=== PATIENT | female | born 1955 | race Caucasian/White ===

== ENCOUNTER 2017-07-28 19:32 | Inpatient (IN) | payer MEDICARE ==
[~2017-07-28] VITALS: Ht 162.6 cm; Wt 101.6 kg
[2017-07-28] MEDS ORDERED: RISP4TAB2 PO (19:49)
[2017-07-28] MEDS ORDERED: LOVA40TA2 PO (19:49)
[2017-07-28] MEDS ORDERED: MELA3TAB2 PO (19:49)
[2017-07-28] MEDS ORDERED: SITA100T PO (19:49)
[2017-07-28] MEDS ORDERED: INSU100I27 SQ (19:49)
[2017-07-28] MEDS ORDERED: HYDR12.53 PO (19:49)
[2017-07-28] MEDS ORDERED: CEFU500T46 PO (19:49)
[2017-07-28] MEDS ORDERED: UBIQ100C3 PO (19:49)
[2017-07-28] MEDS ORDERED: MULT1TAB52 PO (19:49)
[2017-07-28] MEDS ORDERED: LOSA100T6 PO (19:49)
[2017-07-28] MEDS ORDERED: TEMA15CA PO (19:49)
[2017-07-28] MEDS ORDERED: MAGNESIUM HYDROXIDE 2,400 MG/30 ML ORAL.SUSP. PO PRN (20:00)
[2017-07-28] MEDS ORDERED: MAG HYDROX/AL HYDROX/SIMETH 30 ML ORAL.SUSP PO PRN (20:00)
--- NOTE | 2017-07-28 21:02 | PDOC ---
Exam Note: Naseem Note: Please also refer to the separate dictated note~for this date of service dictated separately.~Patient seen individually. Discussed the patient with Nursing staff reviewed the chart.~Reviewed interim history and current functioning. Reviewed vital signs,~Labs/ Radiology~and current medications noted below. Continue current treatment with the changes noted in the dictated addendum note Assessment: Labs: Laboratory Tests Test 07/28/17 19:41 Glucose (Fingerstick) 168 mg/dL (70-99) H Current Medications: Meds: Current Medications Acetaminophen (Tylenol) 650 mg PRN Q6HRS PRN PO PAIN / TEMP; Start 07/28/17 at 20:00 Al Hydroxide/Mg Hydroxide (Mylanta Plus Xs) 15 ml PRN AFTMEALHC PRN PO DYSPEPSIA; Start 07/28/17 at 20:00; Stop 07/28/17 at 20:05; Status DC Magnesium Hydroxide (Milk Of Magnesia) 2,400 mg PRN QHS PRN PO CONSTIPATION; Start 07/28/17 at 20:00; Stop 07/28/17 at 20:05; Status DC Active Scripts Active Reported Hydrochlorothiazide Capsule (Hydrochlorothiazide) 12.5 Mg Capsule 12.5 Mg PO DAILY Ubiquinol 100 Mg Capsule 100 Mg PO DAILYWSUP Temazepam 15 Mg Capsule 15 Mg PO QHS Januvia (Sitagliptin Phosphate) 100 Mg Tablet 100 Mg PO DAILY Risperidone 4 Mg Tablet 4 Mg PO QHS Multivitamins (Multivitamin) 1 Each Tablet 1 Tab PO DAILY Melatonin 3 Mg Tablet 3 Mg PO QHS Lovastatin 40 Mg Tablet 40 Mg PO QHS Losartan Potassium 100 Mg Tablet 100 Mg PO DAILY Levemir Flextouch (Insulin Detemir) 100 Unit/1 Ml Insuln.pen 70 Unit SQ HS Cefuroxime (Cefuroxime Axetil) 500 Mg Tablet 250 Mg PO BID 5 Days I have reviewed the current psychotropics carefully including drug interactions. Risk benefit ratio favors no change other than as noted in my dictated progress note. Diagnosis: Problems: (1) Behavior problem (2) Anxiety disorder (3) Confusion JAY DOE MD Jul 28, 2017 21:02
[2017-07-28 21:10] LABS: BASO % 1 % (0-3); EOS # 0.1 x10^3/uL (0.0-0.7); EOS % 2 % (0-3); HEMATOCRIT 42.6 % (36.0-47.0); HEMOGLOBIN 14.3 g/dL (12.0-15.5); LYMPH # 2.3 x10^3/uL (1.0-4.8); LYMPH % 30 % (24-48); MEAN CORPUSCULAR HEMOGLOBIN 29 pg (25-35); MEAN CORPUSCULAR HGB CONC 34 g/dL (31-37); MEAN CORPUSCULAR VOLUME 86 fL (79-100); MONO # 0.6 x10^3/uL (0.0-1.1); MONO % 8 % (0-9); NEUT # 4.6 x10^3uL (1.8-7.7); NEUT % 60 % (31-73); PLATELET COUNT 189 x10^3/uL (140-400); RED BLOOD COUNT 4.97 x10^6/uL (3.50-5.40); RED CELL DISTRIBUTION WIDTH 14.2 % (11.5-14.5); WHITE BLOOD COUNT 7.7 x10^3/uL (4.0-11.0)
[2017-07-28 21:18] LABS: ALBUMIN 3.7 g/dL (3.4-5.0); ALBUMIN/GLOBULIN RATIO 0.9 (1.0-1.7); CALCIUM 9.5 mg/dL (8.5-10.1); CREATININE 0.7 mg/dL (0.6-1.0); GFR 85.1; TOTAL BILIRUBIN 0.5 mg/dL (0.2-1.0); TOTAL PROTEIN 7.8 g/dL (6.4-8.2)
[2017-07-28] MEDS: MELATONIN 3 MG TABLET PO SCH (21:44)
[2017-07-28] MEDS: risperiDONE 2 MG TABLET. PO SCH (21:45)
[2017-07-28] MEDS: TEMAZEPAM 15 MG CAPSULE PO SCH (21:46)
[2017-07-28] MEDS: INSULIN DETEMIR 300 UNITS/3 ML INSULN.PEN. SQ SCH (21:57)
[2017-07-28] MEDS ORDERED: INSU100I17 SQ (22:04)
[2017-07-28 22:22] VITALS: BP 179/80
[2017-07-29 05:54] VITALS: BP 139/61
[2017-07-29 07:40] LABS: BACTERIA,URINE FEW /HPF (0-FEW); BILIRUBIN,URINE NEG (NEG); CLARITY,URINE CLOUDY; COLOR,URINE YELLOW; GLUCOSE,URINE >=1000 mg/dL (NEG); NITRITE,URINE NEG (NEG); RBC,URINE 0 /HPF (0-2); SQUAMOUS EPITHELIAL CELL,UR MANY /LPF; UROBILINOGEN,URINE 0.2 mg/dL (0.2 mg/dL); WBC,URINE 20-40 /HPF (0-4)
[2017-07-29] MEDS ORDERED: CEFUROXIME AXETIL 250 MG PO SCH (09:00)
[2017-07-29] MEDS ORDERED: NON FORMULARY ITEM (Sitagliptin Phosphate (Januvia) 100 MG) PO SCH (09:00)
[2017-07-29] MEDS: INSULIN ASPART 300 UNITS/3 ML INSULN.PEN SQ SCH ×3 (09:41→17:13)
[2017-07-29] MEDS: hydroCHLOROthiazide 12.5 MG CAPSULE PO SCH (10:35)
[2017-07-29] MEDS: LACTOBACILLUS RHAMNOSUS GG 1 CAPSULE. PO SCH ×2 (10:35→19:24)
[2017-07-29] MEDS: LINAGLIPTIN 5 MG TABLET PO SCH (10:35)
[2017-07-29] MEDS: LOSARTAN 50 MG TABLET. PO SCH (10:35)
[2017-07-29] MEDS: CEFPODOXIME PROXETIL 100 MG TABLET PO SCH ×2 (10:35→19:25)
[2017-07-29] MEDS: MULTIVITAMIN with MINERAL TABLET. PO SCH (10:35)
[2017-07-29] MEDS ORDERED: INSULIN ASPART 300 UNITS/3 ML INSULN.PEN SQ SCH (11:30)
[2017-07-29 13:39] LABS: THYROID STIM HORMONE (TSH) 1.295 uIU/mL (0.358-3.740)
[2017-07-29 16:13] VITALS: BP 157/70
--- NOTE | 2017-07-29 16:15 | PDOC1 ---
History of Present Illness Reason for Visit: Bipolar w/ psychosis History of Present Illness Pt sent to [facility] for admission to the [facility] unit. She has a hx of bipolar disorder as well as insulin-dependent DM. She is a reasonable historian. Pt seen on rounds w/ nursing staff. She has no complaints today. States she was able to eat lunch and it tasted fine. Chief Complaint: Psychosis Allergies: Coded Allergies: Iodinated Contrast- Oral and IV Dye (Verified Allergy, Unknown, 07/28/17) guaifenesin (Verified Allergy, Unknown, 07/28/17) latex (Verified Allergy, Unknown, 07/28/17) naproxen (Verified Allergy, Unknown, 07/28/17) sulfamethoxazole (Verified Allergy, Unknown, 07/28/17) valproic acid (Verified Allergy, Unknown, 07/28/17) Uncoded Allergies: magnesium acid (Allergy, Unknown, 07/28/17) stearic acid (Allergy, Unknown, 07/28/17) Past Medical History Cardiac: HTN, hyperipidemia Endocrine: Diabetes Past Surgical History: No pertinent history Family History: No pertinent hx Past Social History Smoke: No Alcohol: none Drugs: None Lives: Alone Review of Systems Review Of Systems Fourteen system , review of systems has been reviewed. See HPI for pertinent positives and negative responses, other maxwell all other systems are negative, non pertinent or non contributory Constitutional: No: Fever, Chills, Sweats Eyes: No: Blurry vision, Double vision, Loss of vision ENT: No: Ear pain, Mouth pain Respiratory: YES: Cough (dry, improving), No: Shortness of breath Cardiovascular: No: Chest Pain Gastrointestinal: No: Nausea, Vomiting, Abdominal Pain, Diarrhea, Constipation , Melena, Hematochezia Genitourinary: No: Dysuria, Henaturia Musculoskeletal: No: Joint Swelling, Muscular Weakness SKIN: YES: Warm, Dry, No Rashes Neurological: No: Dizziness, Gait Disturbance, Headaches, Memory Loss, Numbness /Tingling, Seizures Allergies: Coded Allergies: Iodinated Contrast- Oral and IV Dye (Verified Allergy, Unknown, 07/28/17) guaifenesin (Verified Allergy, Unknown, 07/28/17) latex (Verified Allergy, Unknown, 07/28/17) naproxen (Verified Allergy, Unknown, 07/28/17) sulfamethoxazole (Verified Allergy, Unknown, 07/28/17) valproic acid (Verified Allergy, Unknown, 07/28/17) Uncoded Allergies: magnesium acid (Allergy, Unknown, 07/28/17) stearic acid (Allergy, Unknown, 07/28/17) Medications Current Medications Acetaminophen (Tylenol) 650 mg PRN Q6HRS PRN PO PAIN / TEMP; Start 07/28/17 at 20:00 Al Hydroxide/Mg Hydroxide (Mylanta Plus Xs) 15 ml PRN AFTMEALHC PRN PO DYSPEPSIA; Start 07/28/17 at 20:00; Stop 07/28/17 at 20:05; Status DC Magnesium Hydroxide (Milk Of Magnesia) 2,400 mg PRN QHS PRN PO CONSTIPATION; Start 07/28/17 at 20:00; Stop 07/28/17 at 20:05; Status DC Temazepam (Restoril) 15 mg QHS PO Last administered on 07/28/17at 21:46; Start 07/28/17 at 21:45 Melatonin 3 mg QHS PO Last administered on 07/28/17at 21:44; Start 07/28/17 at 21:00 Risperidone (RisperDAL) 4 mg QHS PO Last administered on 07/28/17at 21:45; Start 07/28/17 at 21:45 Insulin Detemir (Levemir) 70 units HS SQ Last administered on 07/28/17at 21:57; Start 07/28/17 at 21:00 Hydrochlorothiazide (Microzide) 12.5 mg DAILY PO Last administered on at 10:35; Start 07/29/17 at 09:00 Insulin Aspart (NovoLOG) TIDBFRMEAL SQ ; Start 07/29/17 at 11:30; Stop at 11:30; Status DC Non-Formulary Medication (Cefuroxime Axetil (Cefuroxime)) 250 mg BID PO ; Start 07/29/17 at 09:00; Stop 07/29/17 at 09:00; Status DC Losartan Potassium (Cozaar) 100 mg DAILY PO Last administered on 07/29/17at 10: 35; Start 07/29/17 at 09:00 Non-Formulary Medication (Lovastatin ) 40 mg QHS PO ; Start 07/29/17 at 21:00; Stop 07/29/17 at 21:00; Status DC Multivitamins/ Calcium (Thera-M Plus) 1 tab DAILY PO Last administered on at 10:35; Start 07/29/17 at 09:00 Non-Formulary Medication (Sitagliptin Phosphate (Januvia)) 100 mg DAILY PO ; Start 07/29/17 at 09:00; Stop 07/29/17 at 09:00; Status DC Coenzyme Q10 (Coenzyme Q10) 100 mg DAILYWSUP PO ; Start 07/30/17 at 17:00 Atorvastatin Calcium (Lipitor) 10 mg QHS PO ; Start 07/29/17 at 21:00 Linagliptin (Tradjenta) 5 mg DAILY PO Last administered on 07/29/17at 10:35; Start 07/29/17 at 09:00 Cefpodoxime Proxetil (Vantin) 100 mg BID PO Last administered on 07/29/17at 10: 35; Start 07/29/17 at 09:00; Stop 08/02/17 at 21:01 Lactobacillus Rhamnosus (Culturelle) 1 cap BID PO Last administered on at 10:35; Start 07/29/17 at 09:00 Insulin Aspart (NovoLOG) 20 units TIDBFRMEAL SQ Last administered on 07/29/17at 12:05; Start 07/29/17 at 09:30 Active Scripts Active Reported Novolog Flexpen (Insulin Aspart) 100 Unit/1 Ml Insuln.pen 0 SQ TIDBFRMEAL Hydrochlorothiazide Capsule (Hydrochlorothiazide) 12.5 Mg Capsule 12.5 Mg PO DAILY Ubiquinol 100 Mg Capsule 100 Mg PO DAILYWSUP Temazepam 15 Mg Capsule 15 Mg PO QHS Januvia (Sitagliptin Phosphate) 100 Mg Tablet 100 Mg PO DAILY Risperidone 4 Mg Tablet 4 Mg PO QHS Multivitamins (Multivitamin) 1 Each Tablet 1 Tab PO DAILY Melatonin 3 Mg Tablet 3 Mg PO QHS Lovastatin 40 Mg Tablet 40 Mg PO QHS Losartan Potassium 100 Mg Tablet 100 Mg PO DAILY Levemir Flextouch (Insulin Detemir) 100 Unit/1 Ml Insuln.pen 70 Unit SQ HS Cefuroxime (Cefuroxime Axetil) 500 Mg Tablet 250 Mg PO BID 5 Days Exam Vital Signs Vital Signs Date Time Temp Pulse Resp B/P (MAP) Pulse Ox O2 Delivery O2 Flow Rate FiO2 07/29/17 10:35 74 139/61 07/29/17 05:54 97.5 16 96 07/28/17 22:22 Room Air Assessment/Plan Assessment/Plan 1. Bipolar d/o w/ psychosis: Per Dr. Harper. 2. DM2: Confirmed w/ pt's segmental paving supervisor, takes 30 units Levemir qAM, 70 units at HS. 20 units qac. Will monitor sugars AC/HS and try to avoid hypoglycemia. 3. HTN: BP's controlled w/ home meds. 4. Cont Vantin for total 10 days as ordered by d/c facility. 5. DVT proph: No anticoagulation indicated, pt is fully ambulatory and low risk. COURSE Allergies Coded Allergies Type Severity Reaction Last Updated Verified Iodinated Contrast- Oral and IV Dye Allergy Unknown 07/28/17 Yes guaifenesin Allergy Unknown 07/28/17 Yes latex Allergy Unknown 07/28/17 Yes naproxen Allergy Unknown 07/28/17 Yes sulfamethoxazole Allergy Unknown 07/28/17 Yes valproic acid Allergy Unknown 07/28/17 Yes Uncoded Allergies Type Severity Reaction Last Updated Verified magnesium acid Allergy Unknown 07/28/17 stearic acid Allergy Unknown 07/28/17 Laboratory Tests Test 07/28/17 19:41 07/28/17 20:55 07/29/17 07:20 07/29/17 07:38 Glucose (Fingerstick) 168 mg/dL (70-99) 263 mg/dL (70-99) White Blood Count 7.7 x10^3/uL (4.0-11.0) Red Blood Count 4.97 x10^6/uL (3.50-5.40) Hemoglobin 14.3 g/dL (12.0-15.5) Hematocrit 42.6 % (36.0-47.0) Mean Corpuscular Volume 86 fL (79-100) Mean Corpuscular Hemoglobin 29 pg (25-35) Mean Corpuscular Hemoglobin Concent 34 g/dL (31-37) Red Cell Distribution Width 14.2 % (11.5-14.5) Platelet Count 189 x10^3/uL (140-400) Neutrophils (%) (Auto) 60 % (31-73) Lymphocytes (%) (Auto) 30 % (24-48) Monocytes (%) (Auto) 8 % (0-9) Eosinophils (%) (Auto) 2 % (0-3) Basophils (%) (Auto) 1 % (0-3) Neutrophils # (Auto) 4.6 x10^3uL (1.8-7.7) Lymphocytes # (Auto) 2.3 x10^3/uL (1.0-4.8) Monocytes # (Auto) 0.6 x10^3/uL (0.0-1.1) Eosinophils # (Auto) 0.1 x10^3/uL (0.0-0.7) Basophils # (Auto) 0.0 x10^3/uL (0.0-0.2) Sodium Level 140 mmol/L (136-145) Potassium Level 4.0 mmol/L (3.5-5.1) Chloride Level 103 mmol/L (98-107) Carbon Dioxide Level 27 mmol/L (21-32) Anion Gap 10 (6-14) Blood Urea Nitrogen 14 mg/dL (7-20) Creatinine 0.7 mg/dL (0.6-1.0) Estimated GFR (Cockcroft-Gault) 85.1 BUN/Creatinine Ratio 20 (6-20) Glucose Level 161 mg/dL (70-99) Calcium Level 9.5 mg/dL (8.5-10.1) Magnesium Level 2.0 mg/dL (1.8-2.4) Iron Level 44 ug/dL (50-170) Total Iron Binding Capacity 351 ug/dL (250-450) Iron Saturation 13 % (15-34) Total Bilirubin 0.5 mg/dL (0.2-1.0) Aspartate Amino Transf (AST/SGOT) 20 U/L (15-37) Alanine Aminotransferase (ALT/SGPT) 43 U/L (14-59) Alkaline Phosphatase 84 U/L (46-116) Total Protein 7.8 g/dL (6.4-8.2) Albumin 3.7 g/dL (3.4-5.0) Albumin/Globulin Ratio 0.9 (1.0-1.7) Triglycerides Level 89 mg/dL (0-150) Cholesterol Level 143 mg/dL (0-200) LDL Cholesterol, Calculated 76 mg/dL (0-100) VLDL Cholesterol, Calculated 17 mg/dL (0-40) Non-HDL Cholesterol Calculated 93 mg/dL (0-129) HDL Cholesterol 50 mg/dL (40-60) Cholesterol/HDL Ratio 2.0 Vitamin B12 Level 1571 pg/mL (247-911) 25-Hydroxy Vitamin D Total 32.9 ng/mL (30-100) Thyroid Stimulating Hormone (TSH) 1.295 uIU/mL (0.358-3.740) Urine Collection Type Unknown Urine Color Yellow Urine Clarity Cloudy Urine pH 5.0 Urine Specific [place] >=1.030 Urine Protein Trace (NEG-TRACE) Urine Glucose (UA) >=1000 mg/dL (NEG) Urine Ketones (Stick) Neg mg/dL (NEG) Urine Blood Trace (NEG) Urine Nitrite Neg (NEG) Urine Bilirubin Neg (NEG) Urine Urobilinogen Dipstick 0.2 mg/dL (0.2 mg/dL) Urine Leukocyte Esterase Trace (NEG) Urine RBC 0 /HPF (0-2) Urine WBC 20-40 /HPF (0-4) Urine Squamous Epithelial Cells Many /LPF Urine Bacteria Few /HPF (0-FEW) Urine Mucus Slight /LPF Test 07/29/17 11:26 Glucose (Fingerstick) 274 mg/dL (70-99) Current Medications Medications (Trade) Dose Ordered Sig/Cynthia Route PRN Reason Start Time Stop Time Status Last Admin Dose Admin Acetaminophen (Tylenol) 650 mg PRN Q6HRS PRN PO PAIN / TEMP 07/28/17 20:00 Al Hydroxide/Mg Hydroxide (Mylanta Plus Xs) 15 ml PRN AFTMEALHC PRN PO DYSPEPSIA 07/28/17 20:00 07/28/17 20:05 DC Magnesium Hydroxide (Milk Of Magnesia) 2,400 mg PRN QHS PRN PO CONSTIPATION 07/28/17 20:00 07/28/17 20:05 DC Temazepam (Restoril) 15 mg QHS PO 07/28/17 21:45 07/28/17 21:46 Melatonin 3 mg QHS PO 07/28/17 21:00 07/28/17 21:44 Risperidone (RisperDAL) 4 mg QHS PO 07/28/17 21:45 07/28/17 21:45 Insulin Detemir (Levemir) 70 units HS SQ 07/28/17 21:00 07/28/17 21:57 Hydrochlorothiazide (Microzide) 12.5 mg DAILY PO 07/29/17 09:00 07/29/17 10:35 Insulin Aspart (NovoLOG) TIDBFRMEAL SQ 07/29/17 11:30 07/29/17 11:30 DC Non-Formulary Medication (Cefuroxime Axetil (Cefuroxime)) 250 mg BID PO 07/29/17 09:00 07/29/17 09:00 DC Losartan Potassium (Cozaar) 100 mg DAILY PO 07/29/17 09:00 07/29/17 10:35 Non-Formulary Medication (Lovastatin ) 40 mg QHS PO 07/29/17 21:00 07/29/17 21:00 DC Multivitamins/ Calcium (Thera-M Plus) 1 tab DAILY PO 07/29/17 09:00 07/29/17 10:35 Non-Formulary Medication (Sitagliptin Phosphate (Januvia)) 100 mg DAILY PO 07/29/17 09:00 07/29/17 09:00 DC Coenzyme Q10 (Coenzyme Q10) 100 mg DAILYWSUP PO 07/30/17 17:00 Atorvastatin Calcium (Lipitor) 10 mg QHS PO 07/29/17 21:00 Linagliptin (Tradjenta) 5 mg DAILY PO 07/29/17 09:00 07/29/17 10:35 Cefpodoxime Proxetil (Vantin) 100 mg BID PO 07/29/17 09:00 08/02/17 21:01 07/29/17 10:35 Lactobacillus Rhamnosus (Culturelle) 1 cap BID PO 07/29/17 09:00 07/29/17 10:35 Insulin Aspart (NovoLOG) 20 units TIDBFRMEAL SQ 07/29/17 09:30 07/29/17 12:05 I & O 07/29/17 00:00 Intake Total 240 ml Balance 240 ml Vital Signs Date Time Temp Pulse Resp B/P (MAP) Pulse Ox O2 Delivery O2 Flow Rate FiO2 07/29/17 10:35 74 139/61 07/29/17 05:54 97.5 16 96 07/28/17 22:22 Room Air KAROLINE GALLO MD Jul 29, 2017 16:15
[2017-07-29 18:08] LABS: T3 TOTAL 92 ng/dL (71-180); THYROXINE 8.1 ug/dL (4.5-12.0)
--- NOTE | 2017-07-29 18:41 | HP ---
ADMIT DATE: 07/28/2017 IDENTIFYING DATA: The patient is a 62-year-old female referred to us from [facility] where she presented from home on account of exacerbation of her bipolar disorder with psychotic features. Apparently, the patient left her apartment ended up [employer] will in her car ran out of gas and was taken to [facility]. She was psychotic, admitted, medically stabilized. A psychiatric was completed with Dr. Huggins who recommended finally that she needed inpatient psychiatric stabilization even though at the initial referral, he felt she could return home to outpatient treatment at the [facility]. CHIEF COMPLAINT: "I was at home, had called the ambulance that took me to [facility]." In fact, as noted above, the patient was driving in [employer] will and was not at home when she was taken there." HISTORY OF PRESENT ILLNESS: The patient has a long history of bipolar disorder with periods of elation, racing thoughts, grandiosity, hypersexuality, sleep, and appetite changes. She has been treated at the [facility] for years Originally by Dr. Man and currently sees [facility] nurse practitioner and has seen [facility] nurse practitioner in the past. The patient states she was started on lithium at [facility], but that in fact this is not correct. Most recently, she has been on Risperdal, currently 4 mg a day. In the past, she had been on Depakote, but at the current time, Depakote is listed as an allergy for her. She denies active suicidal or homicidal ideation, but while on the unit, remains extremely anxious, restless, constantly moving, disorganized frequently. PAST PSYCHIATRIC HISTORY: As noted above. PAST MEDICAL HISTORY: Positive for recurrent UTIs. At [facility], UA was positive. Urine reflex to culture. History of back pain, hypertension, diabetes mellitus, obesity, hyperlipidemia. Accu-Cheks a.c. and at bedtime. CODE STATUS: Full code. ALLERGIES: IV DYES, LATEX, MAGNESIUM, MUCINEX, NAPROSYN, STEARIC ACID, SULFA, VALPROIC ACID. CURRENT PSYCHOTROPICS: Risperdal 4 mg at bedtime, melatonin 4 mg at bedtime, Restoril 15 mg at bedtime. FAMILY HISTORY: Noncontributory. SOCIAL HISTORY: [place] [facility] [place] [facility] [place] [facility] [place], [place]. 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 No alcohol or drug abuse history. It is notable in the past when she becomes hypomanic and grandiose, she becomes hyper-baptism and then hypersexual and believes she is having an affair by the process machine operator. In fact, they were unable to be kept in the same room at those times because of her above. REVIEW OF SYSTEMS: No CV, , pulmonary, eye, ENT system symptoms on review. Reliability somewhat poor. Reaction to hospitalization, the patient accepting of this assets, supportive psychotherapy and medication management at the [facility]. MENTAL STATUS EXAM: The patient was seen individually evening of 07/29/2017. She is oriented to herself and situation. Staff indicated that she is up and down and walking away from the dining room frequently restless. Otherwise, oriented. Speech is coherent, abstraction fair, computation somewhat impaired. She is distracted. No active suicidal or homicidal ideation. Attention span short. Language function intact. LABORATORY DATA: Reviewed. IMPRESSION: Bipolar 1 disorder, mixed with psychotic features; anxiety disorder, unspecified; rule out schizoaffective disorder, bipolar type, with psychotic features. Rest as above. PLAN: Admit to geropsychiatry unit at [facility]. I will see the patient daily individually from a psychiatric standpoint, medical followup per Dr. Horta/Dr. Walsh. Continue the patient on her current psychotropic, start her on Trileptal 300 mg b.i.d., we will increase gradually. [place] is best avoided due to her significant noncompliance at home and lower ability to follow through with lab work and the risk of lithium and her situation. Social service staff will address appropriate placement. One option may be living with her son in [facility]. JAY DOE MD DR: KRISTY/german JOB#: [id number] / [id number]
[2017-07-29] MEDS: MELATONIN 3 MG TABLET PO SCH (19:24)
[2017-07-29] MEDS: risperiDONE 2 MG TABLET. PO SCH (19:24)
[2017-07-29] MEDS: TEMAZEPAM 15 MG CAPSULE PO SCH (19:24)
[2017-07-29] MEDS: INSULIN DETEMIR 300 UNITS/3 ML INSULN.PEN. SQ SCH (19:26)
[2017-07-29] MEDS: ATORVASTATIN CALCIUM 10 MG TABLET. PO SCH (19:35)
[2017-07-29] MEDS ORDERED: LOVASTATIN 40 MG PO SCH (21:00)
--- NOTE | 2017-07-29 21:03 | PDOC ---
Exam Note: Naseem Note: Please also refer to the separate dictated note~for this date of service dictated separately.~Patient seen individually. Discussed the patient with Nursing staff reviewed the chart.~Reviewed interim history and current functioning. Reviewed vital signs,~Labs/ Radiology~and current medications noted below. Continue current treatment with the changes noted in the dictated addendum note Assessment: Vital Signs: Vital Signs Date Time Temp Pulse Resp B/P (MAP) Pulse Ox O2 Delivery O2 Flow Rate FiO2 07/29/17 16:13 98.4 66 18 157/70 (99) 98 07/28/17 22:22 Room Air I&O Intake and Output 07/29/17 07:00 Intake Total 240 ml Balance 240 ml Intake Oral 240 ml Labs: Laboratory Tests Test 07/29/17 07:20 07/29/17 07:38 07/29/17 11:26 07/29/17 16:27 Urine Collection Type Unknown Urine Color Yellow Urine Clarity Cloudy Urine pH 5.0 Urine Specific [place] >=1.030 Urine Protein Trace (NEG-TRACE) Urine Glucose (UA) >=1000 mg/dL (NEG) Urine Ketones (Stick) Neg mg/dL (NEG) Urine Blood Trace (NEG) Urine Nitrite Neg (NEG) Urine Bilirubin Neg (NEG) Urine Urobilinogen Dipstick 0.2 mg/dL (0.2 mg/dL) Urine Leukocyte Esterase Trace (NEG) Urine RBC 0 /HPF (0-2) Urine WBC 20-40 /HPF (0-4) Urine Squamous Epithelial Cells Many /LPF Urine Bacteria Few /HPF (0-FEW) Urine Mucus Slight /LPF Glucose (Fingerstick) 263 mg/dL (70-99) H 274 mg/dL (70-99) H 157 mg/dL (70-99) H Test 07/29/17 19:12 Glucose (Fingerstick) 275 mg/dL (70-99) H Current Medications: Meds: Current Medications Acetaminophen (Tylenol) 650 mg PRN Q6HRS PRN PO PAIN / TEMP; Start 07/28/17 at 20:00 Al Hydroxide/Mg Hydroxide (Mylanta Plus Xs) 15 ml PRN AFTMEALHC PRN PO DYSPEPSIA; Start 07/28/17 at 20:00; Stop 07/28/17 at 20:05; Status DC Magnesium Hydroxide (Milk Of Magnesia) 2,400 mg PRN QHS PRN PO CONSTIPATION; Start 07/28/17 at 20:00; Stop 07/28/17 at 20:05; Status DC Temazepam (Restoril) 15 mg QHS PO Last administered on 07/29/17 19:24; Start 07/28/17 at 21:45 Melatonin 3 mg QHS PO Last administered on 07/29/17 19:24; Start 07/28/17 at 21:00 Risperidone (RisperDAL) 4 mg QHS PO Last administered on 07/29/17 19:24; Start 07/28/17 at 21:45 Insulin Detemir (Levemir) 70 units HS SQ Last administered on 07/29/17 19:26; Start 07/28/17 at 21:00 Hydrochlorothiazide (Microzide) 12.5 mg DAILY PO Last administered on 10:35; Start 07/29/17 at 09:00 Insulin Aspart (NovoLOG) TIDBFRMEAL SQ ; Start 07/29/17 at 11:30; Stop at 11:30; Status DC Non-Formulary Medication (Cefuroxime Axetil (Cefuroxime)) 250 mg BID PO ; Start 07/29/17 at 09:00; Stop 07/29/17 at 09:00; Status DC Losartan Potassium (Cozaar) 100 mg DAILY PO Last administered on 07/29/17 10: 35; Start 07/29/17 at 09:00 Non-Formulary Medication (Lovastatin ) 40 mg QHS PO ; Start 07/29/17 at 21:00; Stop 07/29/17 at 21:00; Status DC Multivitamins/ Calcium (Thera-M Plus) 1 tab DAILY PO Last administered on at 10:35; Start 07/29/17 at 09:00 Non-Formulary Medication (Sitagliptin Phosphate (Januvia)) 100 mg DAILY PO ; Start 07/29/17 at 09:00; Stop 07/29/17 at 09:00; Status DC Coenzyme Q10 (Coenzyme Q10) 100 mg DAILYWSUP PO ; Start 07/30/17 at 17:00 Atorvastatin Calcium (Lipitor) 10 mg QHS PO Last administered on 07/29/17at 19: 35; Start 07/29/17 at 21:00 Linagliptin (Tradjenta) 5 mg DAILY PO Last administered on 07/29/17at 10:35; Start 07/29/17 at 09:00 Cefpodoxime Proxetil (Vantin) 100 mg BID PO Last administered on 07/29/17at 19: 25; Start 07/29/17 at 09:00; Stop 08/02/17 at 21:01 Lactobacillus Rhamnosus (Culturelle) 1 cap BID PO Last administered on at 19:24; Start 07/29/17 at 09:00 Insulin Aspart (NovoLOG) 20 units TIDBFRMEAL SQ Last administered on 07/29/17at 17:13; Start 07/29/17 at 09:30 Insulin Detemir (Levemir) 30 units DAILY08 SQ ; Start 07/30/17 at 08:00 Oxcarbazepine (Trileptal) 300 mg BID PO Last administered on 07/29/17 19:35; Start 07/29/17 at 21:00 Active Scripts Active Reported Novolog Flexpen (Insulin Aspart) 100 Unit/1 Ml Insuln.pen 0 SQ TIDBFRMEAL Hydrochlorothiazide Capsule (Hydrochlorothiazide) 12.5 Mg Capsule 12.5 Mg PO DAILY Ubiquinol 100 Mg Capsule 100 Mg PO DAILYWSUP Temazepam 15 Mg Capsule 15 Mg PO QHS Januvia (Sitagliptin Phosphate) 100 Mg Tablet 100 Mg PO DAILY Risperidone 4 Mg Tablet 4 Mg PO QHS Multivitamins (Multivitamin) 1 Each Tablet 1 Tab PO DAILY Melatonin 3 Mg Tablet 3 Mg PO QHS Lovastatin 40 Mg Tablet 40 Mg PO QHS Losartan Potassium 100 Mg Tablet 100 Mg PO DAILY Levemir Flextouch (Insulin Detemir) 100 Unit/1 Ml Insuln.pen 70 Unit SQ HS Cefuroxime (Cefuroxime Axetil) 500 Mg Tablet 250 Mg PO BID 5 Days I have reviewed the current psychotropics carefully including drug interactions. Risk benefit ratio favors no change other than as noted in my dictated progress note. Diagnosis: Problems: (1) Behavior problem (2) Anxiety disorder (3) Confusion (4) Bipolar 1 disorder, manic, moderate (5) Schizoaffective disorder JAY DOE MD Jul 29, 2017 21:03
[2017-07-30 05:51] VITALS: BP 149/71
[2017-07-30] MEDS: MULTIVITAMIN with MINERAL TABLET. PO SCH (08:10)
[2017-07-30] MEDS: LOSARTAN 50 MG TABLET. PO SCH (08:10)
[2017-07-30] MEDS: CEFPODOXIME PROXETIL 100 MG TABLET PO SCH ×2 (08:11→19:41)
[2017-07-30] MEDS: hydroCHLOROthiazide 12.5 MG CAPSULE PO SCH (08:11)
[2017-07-30] MEDS: LACTOBACILLUS RHAMNOSUS GG 1 CAPSULE. PO SCH ×2 (08:11→19:40)
[2017-07-30] MEDS: INSULIN DETEMIR 300 UNITS/3 ML INSULN.PEN. SQ SCH ×2 (08:11→19:50)
[2017-07-30] MEDS: LINAGLIPTIN 5 MG TABLET PO SCH (08:11)
[2017-07-30] MEDS: INSULIN ASPART 300 UNITS/3 ML INSULN.PEN SQ SCH ×3 (08:12→18:04)
[2017-07-30 16:05] VITALS: BP 150/61
[2017-07-30] MEDS: UBIDECARENONE 50 MG CAPSULE. PO SCH (18:05)
[2017-07-30] MEDS: TEMAZEPAM 15 MG CAPSULE PO SCH (19:40)
[2017-07-30] MEDS: risperiDONE 2 MG TABLET. PO SCH (19:40)
[2017-07-30] MEDS: MELATONIN 3 MG TABLET PO SCH (19:40)
[2017-07-30] MEDS: ATORVASTATIN CALCIUM 10 MG TABLET. PO SCH (19:40)
--- NOTE | 2017-07-30 22:04 | PDOC ---
Exam Note: Naseem Note: Please also refer to the separate dictated note~for this date of service dictated separately.~Patient seen individually. Discussed the patient with Nursing staff reviewed the chart.~Reviewed interim history and current functioning. Reviewed vital signs,~Labs/ Radiology~and current medications noted below. Continue current treatment with the changes noted in the dictated addendum note Assessment: Vital Signs: Vital Signs Date Time Temp Pulse Resp B/P (MAP) Pulse Ox O2 Delivery O2 Flow Rate FiO2 07/30/17 16:05 98.1 67 18 150/61 (90) 97 07/28/17 22:22 Room Air I&O Intake and Output 07/30/17 07:00 Intake Total 1800 ml Balance 1800 ml Intake Oral 1800 ml # Bowel Movements 1 Labs: Laboratory Tests Test 07/30/17 07:27 07/30/17 12:15 07/30/17 16:52 07/30/17 18:57 Glucose (Fingerstick) 87 mg/dL (70-99) 119 mg/dL (70-99) H 121 mg/dL (70-99) H 203 mg/dL (70-99) H Current Medications: Meds: Current Medications Acetaminophen (Tylenol) 650 mg PRN Q6HRS PRN PO PAIN / TEMP; Start 07/28/17 at 20:00 Al Hydroxide/Mg Hydroxide (Mylanta Plus Xs) 15 ml PRN AFTMEALHC PRN PO DYSPEPSIA; Start 07/28/17 at 20:00; Stop 07/28/17 at 20:05; Status DC Magnesium Hydroxide (Milk Of Magnesia) 2,400 mg PRN QHS PRN PO CONSTIPATION; Start 07/28/17 at 20:00; Stop 07/28/17 at 20:05; Status DC Temazepam (Restoril) 15 mg QHS PO Last administered on 07/30/17at 19:40; Start 07/28/17 at 21:45 Melatonin 3 mg QHS PO Last administered on 07/30/17 19:40; Start 07/28/17 at 21:00 Risperidone (RisperDAL) 4 mg QHS PO Last administered on 07/30/17 19:40; Start 07/28/17 at 21:45 Insulin Detemir (Levemir) 70 units HS SQ Last administered on 07/30/17at 19:50; Start 07/28/17 at 21:00 Hydrochlorothiazide (Microzide) 12.5 mg DAILY PO Last administered on at 08:11; Start 07/29/17 at 09:00 Insulin Aspart (NovoLOG) TIDBFRMEAL SQ ; Start 07/29/17 at 11:30; Stop at 11:30; Status DC Non-Formulary Medication (Cefuroxime Axetil (Cefuroxime)) 250 mg BID PO ; Start 07/29/17 at 09:00; Stop 07/29/17 at 09:00; Status DC Losartan Potassium (Cozaar) 100 mg DAILY PO Last administered on 07/30/17 08: 10; Start 07/29/17 at 09:00 Non-Formulary Medication (Lovastatin ) 40 mg QHS PO ; Start 07/29/17 at 21:00; Stop 07/29/17 at 21:00; Status DC Multivitamins/ Calcium (Thera-M Plus) 1 tab DAILY PO Last administered on at 08:10; Start 07/29/17 at 09:00 Non-Formulary Medication (Sitagliptin Phosphate (Januvia)) 100 mg DAILY PO ; Start 07/29/17 at 09:00; Stop 07/29/17 at 09:00; Status DC Coenzyme Q10 (Coenzyme Q10) 100 mg DAILYWSUP PO Last administered on 07/30/17 18:05; Start 07/30/17 at 17:00 Atorvastatin Calcium (Lipitor) 10 mg QHS PO Last administered on 07/30/17 19: 40; Start 07/29/17 at 21:00 Linagliptin (Tradjenta) 5 mg DAILY PO Last administered on 07/30/17 08:11; Start 07/29/17 at 09:00 Cefpodoxime Proxetil (Vantin) 100 mg BID PO Last administered on 07/30/17 19: 41; Start 07/29/17 at 09:00; Stop 08/02/17 at 21:01 Lactobacillus Rhamnosus (Culturelle) 1 cap BID PO Last administered on 19:40; Start 07/29/17 at 09:00 Insulin Aspart (NovoLOG) 20 units TIDBFRMEAL SQ Last administered on 3/24/18at 18:04; Start 07/29/17 at 09:30 Insulin Detemir (Levemir) 30 units DAILY08 SQ Last administered on 07/30/17at 08 :11; Start 07/30/17 at 08:00 Oxcarbazepine (Trileptal) 300 mg BID PO Last administered on 07/30/17at 19:40; Start 07/29/17 at 21:00 Active Scripts Active Reported Novolog Flexpen (Insulin Aspart) 100 Unit/1 Ml Insuln.pen 0 SQ TIDBFRMEAL Hydrochlorothiazide Capsule (Hydrochlorothiazide) 12.5 Mg Capsule 12.5 Mg PO DAILY Ubiquinol 100 Mg Capsule 100 Mg PO DAILYWSUP Temazepam 15 Mg Capsule 15 Mg PO QHS Januvia (Sitagliptin Phosphate) 100 Mg Tablet 100 Mg PO DAILY Risperidone 4 Mg Tablet 4 Mg PO QHS Multivitamins (Multivitamin) 1 Each Tablet 1 Tab PO DAILY Melatonin 3 Mg Tablet 3 Mg PO QHS Lovastatin 40 Mg Tablet 40 Mg PO QHS Losartan Potassium 100 Mg Tablet 100 Mg PO DAILY Levemir Flextouch (Insulin Detemir) 100 Unit/1 Ml Insuln.pen 70 Unit SQ HS Cefuroxime (Cefuroxime Axetil) 500 Mg Tablet 250 Mg PO BID 5 Days I have reviewed the current psychotropics carefully including drug interactions. Risk benefit ratio favors no change other than as noted in my dictated progress note. Diagnosis: Problems: (1) Behavior problem (2) Anxiety disorder (3) Confusion (4) Bipolar 1 disorder, manic, moderate (5) Schizoaffective disorder JAY DOE MD Jul 30, 2017 22:04
[2017-07-31] MEDS: ACETAMINOPHEN 325 MG TABLET PO PRN ×2 (02:20→19:45)
[2017-07-31 05:53] VITALS: BP 123/71
[2017-07-31] MEDS: LINAGLIPTIN 5 MG TABLET PO SCH (07:49)
[2017-07-31] MEDS: MULTIVITAMIN with MINERAL TABLET. PO SCH (07:49)
[2017-07-31] MEDS: LACTOBACILLUS RHAMNOSUS GG 1 CAPSULE. PO SCH ×2 (07:49→19:41)
[2017-07-31] MEDS: hydroCHLOROthiazide 12.5 MG CAPSULE PO SCH (07:49)
[2017-07-31] MEDS: LOSARTAN 50 MG TABLET. PO SCH (07:49)
[2017-07-31] MEDS: CEFPODOXIME PROXETIL 100 MG TABLET PO SCH ×2 (07:49→19:41)
[2017-07-31] MEDS: INSULIN DETEMIR 300 UNITS/3 ML INSULN.PEN. SQ SCH ×2 (07:50→20:43)
[2017-07-31] MEDS: INSULIN ASPART 300 UNITS/3 ML INSULN.PEN SQ SCH ×3 (07:51→17:08)
[2017-07-31 16:10] VITALS: BP 147/72
[2017-07-31] MEDS: UBIDECARENONE 50 MG CAPSULE. PO SCH (17:08)
[2017-07-31] MEDS: MELATONIN 3 MG TABLET PO SCH (19:41)
[2017-07-31] MEDS: ATORVASTATIN CALCIUM 10 MG TABLET. PO SCH (19:41)
[2017-07-31] MEDS: risperiDONE 2 MG TABLET. PO SCH (19:41)
[2017-07-31] MEDS: TEMAZEPAM 15 MG CAPSULE PO SCH (19:45)
--- NOTE | 2017-07-31 21:03 | PDOC ---
Exam Note: Naseem Note: Please also refer to the separate dictated note~for this date of service dictated separately.~Patient seen individually. Discussed the patient with Nursing staff reviewed the chart.~Reviewed interim history and current functioning. Reviewed vital signs,~Labs/ Radiology~and current medications noted below. Continue current treatment with the changes noted in the dictated addendum note Assessment: Vital Signs: Vital Signs Date Time Temp Pulse Resp B/P (MAP) Pulse Ox O2 Delivery O2 Flow Rate FiO2 07/31/17 16:10 97.6 63 20 147/72 (97) 97 07/28/17 22:22 Room Air I&O Intake and Output 07/31/17 07:00 Intake Total 1205 ml Balance 1205 ml Intake Oral 1205 ml # Voids 1 Labs: Laboratory Tests Test 07/31/17 07:14 07/31/17 11:36 07/31/17 16:55 07/31/17 19:06 Glucose (Fingerstick) 78 mg/dL (70-99) 150 mg/dL (70-99) H 244 mg/dL (70-99) H 314 mg/dL (70-99) H Current Medications: Meds: Current Medications Acetaminophen (Tylenol) 650 mg PRN Q6HRS PRN PO PAIN / TEMP Last administered on 07/31/17 19:45; Start 07/28/17 at 20:00 Al Hydroxide/Mg Hydroxide (Mylanta Plus Xs) 15 ml PRN AFTMEALHC PRN PO DYSPEPSIA; Start 07/28/17 at 20:00; Stop 07/28/17 at 20:05; Status DC Magnesium Hydroxide (Milk Of Magnesia) 2,400 mg PRN QHS PRN PO CONSTIPATION; Start 07/28/17 at 20:00; Stop 07/28/17 at 20:05; Status DC Temazepam (Restoril) 15 mg QHS PO Last administered on 07/31/17 19:45; Start 07/28/17 at 21:45 Melatonin 3 mg QHS PO Last administered on 07/31/17at 19:41; Start 07/28/17 at 21:00 Risperidone (RisperDAL) 4 mg QHS PO Last administered on 07/31/17 19:41; Start 07/28/17 at 21:45 Insulin Detemir (Levemir) 70 units HS SQ Last administered on 07/31/17 20:43; Start 07/28/17 at 21:00 Hydrochlorothiazide (Microzide) 12.5 mg DAILY PO Last administered on 07:49; Start 07/29/17 at 09:00 Insulin Aspart (NovoLOG) TIDBFRMEAL SQ ; Start 07/29/17 at 11:30; Stop at 11:30; Status DC Non-Formulary Medication (Cefuroxime Axetil (Cefuroxime)) 250 mg BID PO ; Start 07/29/17 at 09:00; Stop 07/29/17 at 09:00; Status DC Losartan Potassium (Cozaar) 100 mg DAILY PO Last administered on 07/31/17 07: 49; Start 07/29/17 at 09:00 Non-Formulary Medication (Lovastatin ) 40 mg QHS PO ; Start 07/29/17 at 21:00; Stop 07/29/17 at 21:00; Status DC Multivitamins/ Calcium (Thera-M Plus) 1 tab DAILY PO Last administered on 07:49; Start 07/29/17 at 09:00 Non-Formulary Medication (Sitagliptin Phosphate (Januvia)) 100 mg DAILY PO ; Start 07/29/17 at 09:00; Stop 07/29/17 at 09:00; Status DC Coenzyme Q10 (Coenzyme Q10) 100 mg DAILYWSUP PO Last administered on 07/31/17 17:08; Start 07/30/17 at 17:00 Atorvastatin Calcium (Lipitor) 10 mg QHS PO Last administered on 07/31/17 19: 41; Start 07/29/17 at 21:00 Linagliptin (Tradjenta) 5 mg DAILY PO Last administered on 07/31/17 07:49; Start 07/29/17 at 09:00 Cefpodoxime Proxetil (Vantin) 100 mg BID PO Last administered on 07/31/17 19: 41; Start 07/29/17 at 09:00; Stop 08/02/17 at 21:01 Lactobacillus Rhamnosus (Culturelle) 1 cap BID PO Last administered on 19:41; Start 07/29/17 at 09:00 Insulin Aspart (NovoLOG) 20 units TIDBFRMEAL SQ Last administered on 07/31/17at 17:08; Start 07/29/17 at 09:30 Insulin Detemir (Levemir) 30 units DAILY08 SQ Last administered on 07/31/17at 07 :50; Start 07/30/17 at 08:00 Oxcarbazepine (Trileptal) 300 mg BID PO Last administered on 07/31/17at 19:41; Start 07/29/17 at 21:00 Active Scripts Active Reported Novolog Flexpen (Insulin Aspart) 100 Unit/1 Ml Insuln.pen 0 SQ TIDBFRMEAL Hydrochlorothiazide Capsule (Hydrochlorothiazide) 12.5 Mg Capsule 12.5 Mg PO DAILY Ubiquinol 100 Mg Capsule 100 Mg PO DAILYWSUP Temazepam 15 Mg Capsule 15 Mg PO QHS Januvia (Sitagliptin Phosphate) 100 Mg Tablet 100 Mg PO DAILY Risperidone 4 Mg Tablet 4 Mg PO QHS Multivitamins (Multivitamin) 1 Each Tablet 1 Tab PO DAILY Melatonin 3 Mg Tablet 3 Mg PO QHS Lovastatin 40 Mg Tablet 40 Mg PO QHS Losartan Potassium 100 Mg Tablet 100 Mg PO DAILY Levemir Flextouch (Insulin Detemir) 100 Unit/1 Ml Insuln.pen 70 Unit SQ HS Cefuroxime (Cefuroxime Axetil) 500 Mg Tablet 250 Mg PO BID 5 Days I have reviewed the current psychotropics carefully including drug interactions. Risk benefit ratio favors no change other than as noted in my dictated progress note. Diagnosis: Problems: (1) Behavior problem (2) Anxiety disorder (3) Confusion (4) Bipolar 1 disorder, manic, moderate (5) Schizoaffective disorder JAY DOE MD Jul 31, 2017 21:03
[2017-08-01] MEDS: ACETAMINOPHEN 325 MG TABLET PO PRN ×2 (04:15→19:09)
[2017-08-01 06:04] VITALS: BP 120/65
[2017-08-01] MEDS: INSULIN ASPART 300 UNITS/3 ML INSULN.PEN SQ SCH ×3 (08:39→17:47)
[2017-08-01] MEDS: LACTOBACILLUS RHAMNOSUS GG 1 CAPSULE. PO SCH ×2 (08:40→20:29)
[2017-08-01] MEDS: MULTIVITAMIN with MINERAL TABLET. PO SCH (08:40)
[2017-08-01] MEDS: INSULIN DETEMIR 300 UNITS/3 ML INSULN.PEN. SQ SCH ×2 (08:40→20:30)
[2017-08-01] MEDS: CEFPODOXIME PROXETIL 100 MG TABLET PO SCH ×2 (08:41→20:28)
[2017-08-01] MEDS: LINAGLIPTIN 5 MG TABLET PO SCH (08:41)
[2017-08-01] MEDS: hydroCHLOROthiazide 12.5 MG CAPSULE PO SCH (08:41)
[2017-08-01 08:44] VITALS: BP 153/66
[2017-08-01] MEDS: LOSARTAN 50 MG TABLET. PO SCH (08:45)
[2017-08-01 16:09] VITALS: BP 143/75
[2017-08-01] MEDS: UBIDECARENONE 50 MG CAPSULE. PO SCH (17:46)
[2017-08-01] MEDS: DIVALPROEX ER 500 MG TAB.ER.24H PO SCH (20:27)
[2017-08-01] MEDS: ATORVASTATIN CALCIUM 10 MG TABLET. PO SCH (20:27)
[2017-08-01] MEDS: risperiDONE 2 MG TABLET. PO SCH (20:27)
[2017-08-01] MEDS: MELATONIN 3 MG TABLET PO SCH (20:28)
[2017-08-01] MEDS: TEMAZEPAM 15 MG CAPSULE PO SCH (20:29)
--- NOTE | 2017-08-01 21:00 | PDOC ---
Exam Note: Naseem Note: Please also refer to the separate dictated note~for this date of service dictated separately.~Patient seen individually. Discussed the patient with Nursing staff reviewed the chart.~Reviewed interim history and current functioning. Reviewed vital signs,~Labs/ Radiology~and current medications noted below. Continue current treatment with the changes noted in the dictated addendum note Assessment: Vital Signs: Vital Signs Date Time Temp Pulse Resp B/P (MAP) Pulse Ox O2 Delivery O2 Flow Rate FiO2 08/01/17 16:09 97.7 67 20 143/75 (97) 98 08/01/17 08:44 Room Air I&O Intake and Output 08/01/17 07:00 Intake Total 1565 ml Balance 1565 ml Intake Oral 1565 ml # Bowel Movements 1 Labs: Laboratory Tests Test 08/01/17 07:26 08/01/17 11:57 08/01/17 16:54 08/01/17 19:18 Glucose (Fingerstick) 146 mg/dL (70-99) H 135 mg/dL (70-99) H 125 mg/dL (70-99) H 270 mg/dL (70-99) H Current Medications: Meds: Current Medications Acetaminophen (Tylenol) 650 mg PRN Q6HRS PRN PO PAIN / TEMP Last administered on 08/01/17at 19:09; Start 07/28/17 at 20:00 Al Hydroxide/Mg Hydroxide (Mylanta Plus Xs) 15 ml PRN AFTMEALHC PRN PO DYSPEPSIA; Start 07/28/17 at 20:00; Stop 07/28/17 at 20:05; Status DC Magnesium Hydroxide (Milk Of Magnesia) 2,400 mg PRN QHS PRN PO CONSTIPATION; Start 07/28/17 at 20:00; Stop 07/28/17 at 20:05; Status DC Temazepam (Restoril) 15 mg QHS PO Last administered on 08/01/17at 20:29; Start 07/28/17 at 21:45 Melatonin 3 mg QHS PO Last administered on 08/01/17at 20:28; Start 07/28/17 at 21:00 Risperidone (RisperDAL) 4 mg QHS PO Last administered on 08/01/17at 20:27; Start 07/28/17 at 21:45 Insulin Detemir (Levemir) 70 units HS SQ Last administered on 08/01/17 20:30; Start 07/28/17 at 21:00 Hydrochlorothiazide (Microzide) 12.5 mg DAILY PO Last administered on 08:41; Start 07/29/17 at 09:00 Insulin Aspart (NovoLOG) TIDBFRMEAL SQ ; Start 07/29/17 at 11:30; Stop at 11:30; Status DC Non-Formulary Medication (Cefuroxime Axetil (Cefuroxime)) 250 mg BID PO ; Start 07/29/17 at 09:00; Stop 07/29/17 at 09:00; Status DC Losartan Potassium (Cozaar) 100 mg DAILY PO Last administered on 08/01/17at 08: 45; Start 07/29/17 at 09:00 Non-Formulary Medication (Lovastatin ) 40 mg QHS PO ; Start 07/29/17 at 21:00; Stop 07/29/17 at 21:00; Status DC Multivitamins/ Calcium (Thera-M Plus) 1 tab DAILY PO Last administered on at 08:40; Start 07/29/17 at 09:00 Non-Formulary Medication (Sitagliptin Phosphate (Januvia)) 100 mg DAILY PO ; Start 07/29/17 at 09:00; Stop 07/29/17 at 09:00; Status DC Coenzyme Q10 (Coenzyme Q10) 100 mg DAILYWSUP PO Last administered on 08/01/17at 17:46; Start 07/30/17 at 17:00 Atorvastatin Calcium (Lipitor) 10 mg QHS PO Last administered on 08/01/17 20: 27; Start 07/29/17 at 21:00 Linagliptin (Tradjenta) 5 mg DAILY PO Last administered on 08/01/17 08:41; Start 07/29/17 at 09:00 Cefpodoxime Proxetil (Vantin) 100 mg BID PO Last administered on 08/01/17 20: 28; Start 07/29/17 at 09:00; Stop 08/02/17 at 21:01 Lactobacillus Rhamnosus (Culturelle) 1 cap BID PO Last administered on 20:29; Start 07/29/17 at 09:00 Insulin Aspart (NovoLOG) 20 units TIDBFRMEAL SQ Last administered on 08/01/17at 17:47; Start 07/29/17 at 09:30 Insulin Detemir (Levemir) 30 units DAILY08 SQ Last administered on 08/01/17at 08 :40; Start 07/30/17 at 08:00 Oxcarbazepine (Trileptal) 300 mg BID PO Last administered on 08/01/17at 20:28; Start 07/29/17 at 21:00 Divalproex Sodium (Depakote Er) 500 mg QHS PO Last administered on 08/01/17at 20 :27; Start 08/01/17 at 21:00 Active Scripts Active Reported Novolog Flexpen (Insulin Aspart) 100 Unit/1 Ml Insuln.pen 0 SQ TIDBFRMEAL Hydrochlorothiazide Capsule (Hydrochlorothiazide) 12.5 Mg Capsule 12.5 Mg PO DAILY Ubiquinol 100 Mg Capsule 100 Mg PO DAILYWSUP Temazepam 15 Mg Capsule 15 Mg PO QHS Januvia (Sitagliptin Phosphate) 100 Mg Tablet 100 Mg PO DAILY Risperidone 4 Mg Tablet 4 Mg PO QHS Multivitamins (Multivitamin) 1 Each Tablet 1 Tab PO DAILY Melatonin 3 Mg Tablet 3 Mg PO QHS Lovastatin 40 Mg Tablet 40 Mg PO QHS Losartan Potassium 100 Mg Tablet 100 Mg PO DAILY Levemir Flextouch (Insulin Detemir) 100 Unit/1 Ml Insuln.pen 70 Unit SQ HS Cefuroxime (Cefuroxime Axetil) 500 Mg Tablet 250 Mg PO BID 5 Days I have reviewed the current psychotropics carefully including drug interactions. Risk benefit ratio favors no change other than as noted in my dictated progress note. Diagnosis: Problems: (1) Behavior problem (2) Anxiety disorder (3) Confusion (4) Bipolar 1 disorder, manic, moderate (5) Schizoaffective disorder JAY DOE MD Aug 01, 2017 20:59
--- NOTE | 2017-08-01 22:49 | PN ---
DATE: 07/30/2017 This is a late entry for 07/30/2017 covers elements not covered in my initial note of 07/30/2017. SUBJECTIVE: I met with the patient in the evening of 07/30/2017. Per nursing report, the patient has been somewhat anxious, restless, still labile in her mood, constantly moving, distractible. REVIEW OF SYSTEMS: No CV, , pulmonary, eye, ENT system symptoms on review. Reliability varies. MENTAL STATUS EXAM: Reasonably oriented. Speech coherent, abstraction fair, computation impaired, language function intact, attention-span short. Mood and affect remain somewhat labile. No suicidal or homicidal ideation. IMPRESSION: Bipolar 1 disorder, mixed with psychotic features, anxiety disorder, unspecified. PLAN: Continue current psychotropics Trileptal as a mood stabilizer, though I would prefer to have her back on Depakote, which is something she responded too well in the past. There is a question whether she is allergic to Depakote. On my close and persistent inquiry, I am unable to discern any specific side effects from the Depakote other than she states she is "ALLERGIC TO ALL ACIDS" after initially stating "I AM ALLERGIC TO STEARIC ACID." We will have to check with the pharmacy that she got the Depakote dispensed from to see if she has a true allergy and if so what it was since she has responded well to Depakote in the past. Continue current psychotropics as noted and start Depakote if we get clarification on all of the above. JAY DOE MD DR: KRISTY/german JOB#: [id number] / [id number]
--- NOTE | 2017-08-01 23:36 | PN ---
DATE: 07/31/2017 This is a late entry, 07/31/2017, covers the elements not covered in my initial note, 07/31/2017. SUBJECTIVE: I met with the patient in the evening of 07/31/2017. The patient remains compliant with her medication, reasonably oriented, still somewhat labile in her mood. She is still somewhat delusional, unsure why the allergy to Depakote was noted. Nursing staff are going to call the pharmacy in [place] morning of 08/01/2017, to clarify what specific allergic reaction she had to the Depakote because in fact in the past, she responded well to Depakote with no allergic reaction and much of what she describes as an allergic reaction is her perception that she is allergic to "all acids." If no clear allergy is noted, we will initiate Depakote 250 mg p.o. at bedtime. Check CBC, CMP, valproic acid level in 3 days. REVIEW OF SYSTEMS: In the interim, no CV, , pulmonary, eye, ENT system symptoms on review. MENTAL STATUS EXAM: Reasonably oriented. Speech is coherent, still somewhat pressured. Abstraction fair, computation impaired, language function intact. Attention span short, still somewhat paranoid, but improved. LABORATORY DATA: Reviewed. IMPRESSION: Bipolar disorder, mixed with psychotic features, in partial remission. Rest unchanged. PLAN: Continue psychotropics as mentioned in my initial note. Start Depakote 250 mg at bedtime. Once we get the clarification from the pharmacy and follow the labs level. JAY DOE MD DR: KRISTY/german JOB#: [id number] / [id number]
[2017-08-02 06:06] VITALS: BP 145/63
[2017-08-02] MEDS: INSULIN ASPART 300 UNITS/3 ML INSULN.PEN SQ SCH ×3 (07:30→17:32)
[2017-08-02] MEDS: ONDANSETRON ODT 4 MG TAB.RAPDIS PO PRN (08:01)
[2017-08-02] MEDS: LOSARTAN 50 MG TABLET. PO SCH (09:15)
[2017-08-02] MEDS: CEFPODOXIME PROXETIL 100 MG TABLET PO SCH ×2 (09:15→20:11)
[2017-08-02] MEDS: MULTIVITAMIN with MINERAL TABLET. PO SCH (09:16)
[2017-08-02] MEDS: LINAGLIPTIN 5 MG TABLET PO SCH (09:16)
[2017-08-02] MEDS: hydroCHLOROthiazide 12.5 MG CAPSULE PO SCH (09:16)
[2017-08-02] MEDS: LACTOBACILLUS RHAMNOSUS GG 1 CAPSULE. PO SCH ×2 (09:16→20:11)
[2017-08-02] MEDS: INSULIN DETEMIR 300 UNITS/3 ML INSULN.PEN. SQ SCH ×2 (09:17→20:14)
[2017-08-02 16:12] VITALS: BP 132/60
[2017-08-02] MEDS: UBIDECARENONE 50 MG CAPSULE. PO SCH (17:26)
[2017-08-02] MEDS: DIVALPROEX ER 500 MG TAB.ER.24H PO SCH (20:11)
[2017-08-02] MEDS: risperiDONE 2 MG TABLET. PO SCH (20:11)
[2017-08-02] MEDS: MELATONIN 3 MG TABLET PO SCH (20:11)
[2017-08-02] MEDS: ATORVASTATIN CALCIUM 10 MG TABLET. PO SCH (20:11)
[2017-08-02] MEDS: TEMAZEPAM 15 MG CAPSULE PO SCH (20:13)
--- NOTE | 2017-08-02 20:27 | PN ---
DATE: 08/01/2017 PSYCHIATRIC PROGRESS NOTE This is a late entry 08/01/2017 covers elements not covered in my initial note 08/01/2017. SUBJECTIVE: I met with the patient in the evening of 08/01/2017. The patient slept 8 hours previous evening compliant with her medications. ALLAN Moyer has called the Pharmacy to clarify her drug allergies. She is allergic to STEARIC ACID, but not valproic acid. REVIEW OF SYSTEMS: No CV, , pulmonary, eye, ENT system symptoms on review. MENTAL STATUS EXAM: Oriented to herself and situation. Speech coherent, still somewhat pressured. Abstraction fair, computation impaired, language function intact. The patient is somewhat grandiose, stated she got a message from God and she was feeling uplifted. LABORATORY DATA: Reviewed. IMPRESSION: Bipolar 1 disorder, mixed with psychotic features. Rest unchanged. PLAN: Start Depakote ER 500 mg p.o. at bedtime. Check CBC, CMP, valproic acid level in 3 days. Continue rest unchanged per the initial note. MAN Kaur DOE MD DR: KIRSTY/german JOB#: [id number] / [id number]
--- NOTE | 2017-08-02 20:53 | PDOC ---
Exam Note: Naseem Note: Please also refer to the separate dictated note~for this date of service dictated separately.~Patient seen individually. Discussed the patient with Nursing staff reviewed the chart.~Reviewed interim history and current functioning. Reviewed vital signs,~Labs/ Radiology~and current medications noted below. Continue current treatment with the changes noted in the dictated addendum note Assessment: Vital Signs: Vital Signs Date Time Temp Pulse Resp B/P (MAP) Pulse Ox O2 Delivery O2 Flow Rate FiO2 08/02/17 16:12 97.8 65 18 132/60 (84) 97 08/01/17 08:44 Room Air I&O Intake and Output 08/02/17 07:00 Intake Total 1800 ml Balance 1800 ml Intake Oral 1800 ml Labs: Laboratory Tests Test 08/02/17 07:30 08/02/17 11:34 08/02/17 16:46 08/02/17 19:51 Glucose (Fingerstick) 167 mg/dL (70-99) H 192 mg/dL (70-99) H 192 mg/dL (70-99) H 235 mg/dL (70-99) H Current Medications: Meds: Current Medications Acetaminophen (Tylenol) 650 mg PRN Q6HRS PRN PO PAIN / TEMP Last administered on 08/01/17at 19:09; Start 07/28/17 at 20:00 Al Hydroxide/Mg Hydroxide (Mylanta Plus Xs) 15 ml PRN AFTMEALHC PRN PO DYSPEPSIA; Start 07/28/17 at 20:00; Stop 07/28/17 at 20:05; Status DC Magnesium Hydroxide (Milk Of Magnesia) 2,400 mg PRN QHS PRN PO CONSTIPATION; Start 07/28/17 at 20:00; Stop 07/28/17 at 20:05; Status DC Temazepam (Restoril) 15 mg QHS PO Last administered on 08/02/17at 20:13; Start 07/28/17 at 21:45 Melatonin 3 mg QHS PO Last administered on 08/02/17at 20:11; Start 07/28/17 at 21:00 Risperidone (RisperDAL) 4 mg QHS PO Last administered on 08/02/17at 20:11; Start 07/28/17 at 21:45 Insulin Detemir (Levemir) 70 units HS SQ Last administered on 08/02/17 20:14; Start 07/28/17 at 21:00 Hydrochlorothiazide (Microzide) 12.5 mg DAILY PO Last administered on 09:16; Start 07/29/17 at 09:00 Insulin Aspart (NovoLOG) TIDBFRMEAL SQ ; Start 07/29/17 at 11:30; Stop at 11:30; Status DC Non-Formulary Medication (Cefuroxime Axetil (Cefuroxime)) 250 mg BID PO ; Start 07/29/17 at 09:00; Stop 07/29/17 at 09:00; Status DC Losartan Potassium (Cozaar) 100 mg DAILY PO Last administered on 08/02/17at 09: 15; Start 07/29/17 at 09:00 Non-Formulary Medication (Lovastatin ) 40 mg QHS PO ; Start 07/29/17 at 21:00; Stop 07/29/17 at 21:00; Status DC Multivitamins/ Calcium (Thera-M Plus) 1 tab DAILY PO Last administered on 09:16; Start 07/29/17 at 09:00 Non-Formulary Medication (Sitagliptin Phosphate (Januvia)) 100 mg DAILY PO ; Start 07/29/17 at 09:00; Stop 07/29/17 at 09:00; Status DC Coenzyme Q10 (Coenzyme Q10) 100 mg DAILYWSUP PO Last administered on 08/02/17 17:26; Start 07/30/17 at 17:00 Atorvastatin Calcium (Lipitor) 10 mg QHS PO Last administered on 08/02/17at 20: 11; Start 07/29/17 at 21:00 Linagliptin (Tradjenta) 5 mg DAILY PO Last administered on 08/02/17 09:16; Start 07/29/17 at 09:00 Cefpodoxime Proxetil (Vantin) 100 mg BID PO Last administered on 08/02/17 20: 11; Start 07/29/17 at 09:00; Stop 08/02/17 at 21:01 Lactobacillus Rhamnosus (Culturelle) 1 cap BID PO Last administered on at 20:11; Start 07/29/17 at 09:00 Insulin Aspart (NovoLOG) 20 units TIDBFRMEAL SQ Last administered on 08/02/17 17:32; Start 07/29/17 at 09:30 Insulin Detemir (Levemir) 30 units DAILY08 SQ Last administered on 08/02/17at 09 :17; Start 07/30/17 at 08:00 Oxcarbazepine (Trileptal) 300 mg BID PO Last administered on 08/02/17at 20:11; Start 07/29/17 at 21:00 Divalproex Sodium (Depakote Er) 500 mg QHS PO Last administered on 08/02/17at 20 :11; Start 08/01/17 at 21:00 Ondansetron HCl (Zofran Odt) 4 mg PRN Q4HRS PRN PO NAUSEA/VOMITING Last administered on 08/02/17at 08:01; Start 08/02/17 at 07:45 Active Scripts Active Reported Novolog Flexpen (Insulin Aspart) 100 Unit/1 Ml Insuln.pen 0 SQ TIDBFRMEAL Hydrochlorothiazide Capsule (Hydrochlorothiazide) 12.5 Mg Capsule 12.5 Mg PO DAILY Ubiquinol 100 Mg Capsule 100 Mg PO DAILYWSUP Temazepam 15 Mg Capsule 15 Mg PO QHS Januvia (Sitagliptin Phosphate) 100 Mg Tablet 100 Mg PO DAILY Risperidone 4 Mg Tablet 4 Mg PO QHS Multivitamins (Multivitamin) 1 Each Tablet 1 Tab PO DAILY Melatonin 3 Mg Tablet 3 Mg PO QHS Lovastatin 40 Mg Tablet 40 Mg PO QHS Losartan Potassium 100 Mg Tablet 100 Mg PO DAILY Levemir Flextouch (Insulin Detemir) 100 Unit/1 Ml Insuln.pen 70 Unit SQ HS Cefuroxime (Cefuroxime Axetil) 500 Mg Tablet 250 Mg PO BID 5 Days I have reviewed the current psychotropics carefully including drug interactions. Risk benefit ratio favors no change other than as noted in my dictated progress note. Diagnosis: Problems: (1) Behavior problem (2) Anxiety disorder (3) Confusion (4) Bipolar 1 disorder, manic, moderate (5) Schizoaffective disorder JAY DOE MD Aug 02, 2017 20:53
[2017-08-03] MEDS: ONDANSETRON ODT 4 MG TAB.RAPDIS PO PRN ×2 (02:48→17:27)
[2017-08-03 06:05] VITALS: BP 133/64
[2017-08-03] MEDS: hydroCHLOROthiazide 12.5 MG CAPSULE PO SCH (07:45)
[2017-08-03] MEDS: LACTOBACILLUS RHAMNOSUS GG 1 CAPSULE. PO SCH ×2 (07:45→19:49)
[2017-08-03] MEDS: MULTIVITAMIN with MINERAL TABLET. PO SCH (07:45)
[2017-08-03] MEDS: LOSARTAN 50 MG TABLET. PO SCH (07:45)
[2017-08-03] MEDS: LINAGLIPTIN 5 MG TABLET PO SCH (07:46)
[2017-08-03] MEDS: INSULIN ASPART 300 UNITS/3 ML INSULN.PEN SQ SCH ×3 (07:47→17:24)
[2017-08-03] MEDS: INSULIN DETEMIR 300 UNITS/3 ML INSULN.PEN. SQ SCH ×2 (07:51→19:53)
[2017-08-03 16:30] VITALS: BP 120/50
[2017-08-03] MEDS: UBIDECARENONE 50 MG CAPSULE. PO SCH (17:22)
[2017-08-03] MEDS: MELATONIN 3 MG TABLET PO SCH (19:49)
[2017-08-03] MEDS: ATORVASTATIN CALCIUM 10 MG TABLET. PO SCH (19:49)
[2017-08-03] MEDS: DIVALPROEX ER 500 MG TAB.ER.24H PO SCH (19:49)
[2017-08-03] MEDS: risperiDONE 2 MG TABLET. PO SCH (19:50)
[2017-08-03] MEDS: TEMAZEPAM 15 MG CAPSULE PO SCH (19:51)
--- NOTE | 2017-08-03 21:02 | PDOC ---
Exam Note: Naseem Note: Please also refer to the separate dictated note~for this date of service dictated separately.~Patient seen individually. Discussed the patient with Nursing staff reviewed the chart.~Reviewed interim history and current functioning. Reviewed vital signs,~Labs/ Radiology~and current medications noted below. Continue current treatment with the changes noted in the dictated addendum note Assessment: Vital Signs: Vital Signs Date Time Temp Pulse Resp B/P (MAP) Pulse Ox O2 Delivery O2 Flow Rate FiO2 08/03/17 16:30 98.2 62 20 120/50 (73) 98 08/01/17 08:44 Room Air I&O Intake and Output 08/03/17 07:00 Intake Total 600 ml Balance 600 ml Intake Oral 600 ml # Bowel Movements 1 Labs: Laboratory Tests Test 08/03/17 07:09 08/03/17 11:08 08/03/17 16:51 08/03/17 19:12 Glucose (Fingerstick) 176 mg/dL (70-99) H 195 mg/dL (70-99) H 157 mg/dL (70-99) H 184 mg/dL (70-99) H Current Medications: Meds: Current Medications Acetaminophen (Tylenol) 650 mg PRN Q6HRS PRN PO PAIN / TEMP Last administered on 08/01/17at 19:09; Start 07/28/17 at 20:00 Al Hydroxide/Mg Hydroxide (Mylanta Plus Xs) 15 ml PRN AFTMEALHC PRN PO DYSPEPSIA; Start 07/28/17 at 20:00; Stop 07/28/17 at 20:05; Status DC Magnesium Hydroxide (Milk Of Magnesia) 2,400 mg PRN QHS PRN PO CONSTIPATION; Start 07/28/17 at 20:00; Stop 07/28/17 at 20:05; Status DC Temazepam (Restoril) 15 mg QHS PO Last administered on 08/03/17at 19:51; Start 07/28/17 at 21:45 Melatonin 3 mg QHS PO Last administered on 08/03/17at 19:49; Start 07/28/17 at 21:00 Risperidone (RisperDAL) 4 mg QHS PO Last administered on 08/03/17at 19:50; Start 07/28/17 at 21:45 Insulin Detemir (Levemir) 70 units HS SQ Last administered on 08/03/17 19:53; Start 07/28/17 at 21:00 Hydrochlorothiazide (Microzide) 12.5 mg DAILY PO Last administered on 07:45; Start 07/29/17 at 09:00 Insulin Aspart (NovoLOG) TIDBFRMEAL SQ ; Start 07/29/17 at 11:30; Stop at 11:30; Status DC Non-Formulary Medication (Cefuroxime Axetil (Cefuroxime)) 250 mg BID PO ; Start 07/29/17 at 09:00; Stop 07/29/17 at 09:00; Status DC Losartan Potassium (Cozaar) 100 mg DAILY PO Last administered on 08/03/17 07: 45; Start 07/29/17 at 09:00 Non-Formulary Medication (Lovastatin ) 40 mg QHS PO ; Start 07/29/17 at 21:00; Stop 07/29/17 at 21:00; Status DC Multivitamins/ Calcium (Thera-M Plus) 1 tab DAILY PO Last administered on 07:45; Start 07/29/17 at 09:00 Non-Formulary Medication (Sitagliptin Phosphate (Januvia)) 100 mg DAILY PO ; Start 07/29/17 at 09:00; Stop 07/29/17 at 09:00; Status DC Coenzyme Q10 (Coenzyme Q10) 100 mg DAILYWSUP PO Last administered on 08/03/17 17:22; Start 07/30/17 at 17:00 Atorvastatin Calcium (Lipitor) 10 mg QHS PO Last administered on 08/03/17 19: 49; Start 07/29/17 at 21:00 Linagliptin (Tradjenta) 5 mg DAILY PO Last administered on 08/03/17 07:46; Start 07/29/17 at 09:00 Cefpodoxime Proxetil (Vantin) 100 mg BID PO Last administered on 08/02/17 20: 11; Start 07/29/17 at 09:00; Stop 08/02/17 at 21:01; Status DC Lactobacillus Rhamnosus (Culturelle) 1 cap BID PO Last administered on 19:49; Start 07/29/17 at 09:00 Insulin Aspart (NovoLOG) 20 units TIDBFRMEAL SQ Last administered on 08/03/17 17:24; Start 07/29/17 at 09:30 Insulin Detemir (Levemir) 30 units DAILY08 SQ Last administered on 08/03/17 07 :51; Start 07/30/17 at 08:00 Oxcarbazepine (Trileptal) 300 mg BID PO Last administered on 08/03/17 07:45; Start 07/29/17 at 21:00; Stop 08/03/17 at 18:45; Status DC Divalproex Sodium (Depakote Er) 500 mg QHS PO Last administered on 08/03/17 19 :49; Start 08/01/17 at 21:00 Ondansetron HCl (Zofran Odt) 4 mg PRN Q4HRS PRN PO NAUSEA/VOMITING Last administered on 08/03/17 17:27; Start 08/02/17 at 07:45 Active Scripts Active Reported Novolog Flexpen (Insulin Aspart) 100 Unit/1 Ml Insuln.pen 0 SQ TIDBFRMEAL Hydrochlorothiazide Capsule (Hydrochlorothiazide) 12.5 Mg Capsule 12.5 Mg PO DAILY Ubiquinol 100 Mg Capsule 100 Mg PO DAILYWSUP Temazepam 15 Mg Capsule 15 Mg PO QHS Januvia (Sitagliptin Phosphate) 100 Mg Tablet 100 Mg PO DAILY Risperidone 4 Mg Tablet 4 Mg PO QHS Multivitamins (Multivitamin) 1 Each Tablet 1 Tab PO DAILY Melatonin 3 Mg Tablet 3 Mg PO QHS Lovastatin 40 Mg Tablet 40 Mg PO QHS Losartan Potassium 100 Mg Tablet 100 Mg PO DAILY Levemir Flextouch (Insulin Detemir) 100 Unit/1 Ml Insuln.pen 70 Unit SQ HS Cefuroxime (Cefuroxime Axetil) 500 Mg Tablet 250 Mg PO BID 5 Days I have reviewed the current psychotropics carefully including drug interactions. Risk benefit ratio favors no change other than as noted in my dictated progress note. Diagnosis: Problems: (1) Behavior problem (2) Anxiety disorder (3) Confusion (4) Bipolar 1 disorder, manic, moderate (5) Schizoaffective disorder JAY DOE MD Aug 03, 2017 21:02
--- NOTE | 2017-08-03 21:48 | PN ---
DATE: 08/02/2017 PSYCHIATRIC PROGRESS NOTE This is a late entry of 08/02/2017 covers elements not covered in my initial note 08/02/2017. I met with the patient in the evening of 08/02/2017. The patient slept 7-1/4 hours previous evening. She has been a little more cooperative during the day, slept until lunch, was somewhat sick in the morning, received Zofran. REVIEW OF SYSTEMS: No CV, , pulmonary, eye, ENT system symptoms on review. Reliability fair. MENTAL STATUS EXAM: Oriented to herself and situation. Speech coherent, abstraction fair, computation is reasonable, language function intact. Attention span short. The patient is not totally open about some of her thought disorder, grandiosity, racing thoughts, tends to minimize this. Review of her past history is quite reflective of her bipolar disorder with periods of betsy, hypersexuality, especially towards the pmo project manager and it was reported she could not sit in the same room as the pmo project manager due to sexual preoccupation during times of intense betsy. On morning of 08/03/2017, I have addressed this with the social service staff, who had some questions on this as well. No active suicidal or homicidal ideation. LABORATORY DATA: Reviewed. IMPRESSION: Bipolar 1 disorder, mixed with psychotic features. Rest unchanged. PLAN: Continue current psychotropics, Depakote ER was added 500 mg at bedtime. Check labs level, adjust to reach therapeutic level and then we may stop Trileptal. MAN Kaur DOE MD DR: KRISTY/german JOB#: [id number] / [id number]
[2017-08-04] MEDS: ACETAMINOPHEN 325 MG TABLET PO PRN (04:36)
[2017-08-04 05:44] VITALS: BP 120/66
[2017-08-04] MEDS: INSULIN ASPART 300 UNITS/3 ML INSULN.PEN SQ SCH ×4 (07:30→16:30)
[2017-08-04] MEDS: INSULIN DETEMIR 300 UNITS/3 ML INSULN.PEN. SQ SCH ×2 (08:00→19:56)
[2017-08-04] MEDS: LACTOBACILLUS RHAMNOSUS GG 1 CAPSULE. PO SCH ×2 (08:01→19:51)
[2017-08-04] MEDS: MULTIVITAMIN with MINERAL TABLET. PO SCH (08:01)
[2017-08-04] MEDS: hydroCHLOROthiazide 12.5 MG CAPSULE PO SCH (08:01)
[2017-08-04] MEDS: LINAGLIPTIN 5 MG TABLET PO SCH (08:01)
[2017-08-04] MEDS: LOSARTAN 50 MG TABLET. PO SCH (08:04)
[2017-08-04 08:05] LABS: BASO % 0 % (0-3); EOS # 0.1 x10^3/uL (0.0-0.7); EOS % 1 % (0-3); HEMATOCRIT 39.6 % (36.0-47.0); HEMOGLOBIN 13.9 g/dL (12.0-15.5); LYMPH % 26 % (24-48); MEAN CORPUSCULAR HEMOGLOBIN 29 pg (25-35); MEAN CORPUSCULAR HGB CONC 35 g/dL (31-37); MEAN CORPUSCULAR VOLUME 84 fL (79-100); MONO # 0.8 x10^3/uL (0.0-1.1); MONO % 11 % (0-9); NEUT # 4.8 x10^3uL (1.8-7.7); NEUT % 62 % (31-73); PLATELET COUNT 158 x10^3/uL (140-400); RED BLOOD COUNT 4.74 x10^6/uL (3.50-5.40); WHITE BLOOD COUNT 7.8 x10^3/uL (4.0-11.0)
[2017-08-04 08:19] LABS: ALBUMIN 3.1 g/dL (3.4-5.0); ALBUMIN/GLOBULIN RATIO 0.8 (1.0-1.7); ALK PHOS 80 U/L (46-116); ALT (SGPT) 30 U/L (14-59); ANION GAP 5 (6-14); AST (SGOT) 18 U/L (15-37); BLOOD UREA NITROGEN 11 mg/dL (7-20); BUN/CREATININE RATIO 16 (6-20); CALCIUM 8.8 mg/dL (8.5-10.1); CARBON DIOXIDE 31 mmol/L (21-32); CHLORIDE 89 mmol/L (98-107); CREATININE 0.7 mg/dL (0.6-1.0); GFR 85.1; GLUCOSE 103 mg/dL (70-99); POTASSIUM 3.9 mmol/L (3.5-5.1); SODIUM 125 mmol/L (136-145); TOTAL BILIRUBIN 0.4 mg/dL (0.2-1.0); TOTAL PROTEIN 6.8 g/dL (6.4-8.2)
[2017-08-04 08:20] LABS: VAL ACID 36 mcg/mL (50-100)
[2017-08-04 16:03] VITALS: BP 120/76
[2017-08-04] MEDS: UBIDECARENONE 50 MG CAPSULE. PO SCH (17:16)
[2017-08-04] MEDS: MELATONIN 3 MG TABLET PO SCH (19:51)
[2017-08-04] MEDS: ATORVASTATIN CALCIUM 10 MG TABLET. PO SCH (19:51)
[2017-08-04] MEDS: risperiDONE 2 MG TABLET. PO SCH (19:51)
[2017-08-04] MEDS: TEMAZEPAM 15 MG CAPSULE PO SCH (19:53)
[2017-08-04] MEDS: DIVALPROEX ER 500 MG TAB.ER.24H PO SCH (19:54)
--- NOTE | 2017-08-04 20:53 | PDOC ---
Exam Note: Naseem Note: Please also refer to the separate dictated note~for this date of service dictated separately.~Patient seen individually. Discussed the patient with Nursing staff reviewed the chart.~Reviewed interim history and current functioning. Reviewed vital signs,~Labs/ Radiology~and current medications noted below. Continue current treatment with the changes noted in the dictated addendum note Assessment: Vital Signs: Vital Signs Date Time Temp Pulse Resp B/P (MAP) Pulse Ox O2 Delivery O2 Flow Rate FiO2 08/04/17 16:03 98.2 60 18 120/76 (91) 97 08/01/17 08:44 Room Air I&O Intake and Output 08/04/17 07:00 Intake Total 960 ml Balance 960 ml Intake Oral 960 ml Labs: Laboratory Tests Test 08/04/17 07:24 08/04/17 07:39 08/04/17 11:18 08/04/17 16:54 White Blood Count 7.8 x10^3/uL (4.0-11.0) Red Blood Count 4.74 x10^6/uL (3.50-5.40) Hemoglobin 13.9 g/dL (12.0-15.5) Hematocrit 39.6 % (36.0-47.0) Mean Corpuscular Volume 84 fL (79-100) Mean Corpuscular Hemoglobin 29 pg (25-35) Mean Corpuscular Hemoglobin Concent 35 g/dL (31-37) Red Cell Distribution Width 14.0 % (11.5-14.5) Platelet Count 158 x10^3/uL (140-400) Neutrophils (%) (Auto) 62 % (31-73) Lymphocytes (%) (Auto) 26 % (24-48) Monocytes (%) (Auto) 11 % (0-9) H Eosinophils (%) (Auto) 1 % (0-3) Basophils (%) (Auto) 0 % (0-3) Neutrophils # (Auto) 4.8 x10^3uL (1.8-7.7) Lymphocytes # (Auto) 2.0 x10^3/uL (1.0-4.8) Monocytes # (Auto) 0.8 x10^3/uL (0.0-1.1) Eosinophils # (Auto) 0.1 x10^3/uL (0.0-0.7) Basophils # (Auto) 0.0 x10^3/uL (0.0-0.2) Sodium Level 125 mmol/L (136-145) L Potassium Level 3.9 mmol/L (3.5-5.1) Chloride Level 89 mmol/L (98-107) L Carbon Dioxide Level 31 mmol/L (21-32) Anion Gap 5 (6-14) L Blood Urea Nitrogen 11 mg/dL (7-20) Creatinine 0.7 mg/dL (0.6-1.0) Estimated GFR (Cockcroft-Gault) 85.1 BUN/Creatinine Ratio 16 (6-20) Glucose Level 103 mg/dL (70-99) H Calcium Level 8.8 mg/dL (8.5-10.1) Total Bilirubin 0.4 mg/dL (0.2-1.0) Aspartate Amino Transferase (AST) 18 U/L (15-37) Alanine Aminotransferase (ALT) 30 U/L (14-59) Alkaline Phosphatase 80 U/L (46-116) Total Protein 6.8 g/dL (6.4-8.2) Albumin 3.1 g/dL (3.4-5.0) L Albumin/Globulin Ratio 0.8 (1.0-1.7) L Valproic Acid Level 36 mcg/mL (50-100) L Valproic Acid Last Dose Date 08/03/17 Valproic Acid Last Dose Time 2100 Glucose (Fingerstick) 107 mg/dL (70-99) H 177 mg/dL (70-99) H 75 mg/dL (70-99) Test 08/04/17 19:03 Glucose (Fingerstick) 256 mg/dL (70-99) H Current Medications: Meds: Current Medications Acetaminophen (Tylenol) 650 mg PRN Q6HRS PRN PO PAIN / TEMP Last administered on 08/04/17at 04:36; Start 07/28/17 at 20:00 Al Hydroxide/Mg Hydroxide (Mylanta Plus Xs) 15 ml PRN AFTMEALHC PRN PO DYSPEPSIA; Start 07/28/17 at 20:00; Stop 07/28/17 at 20:05; Status DC Magnesium Hydroxide (Milk Of Magnesia) 2,400 mg PRN QHS PRN PO CONSTIPATION; Start 07/28/17 at 20:00; Stop 07/28/17 at 20:05; Status DC Temazepam (Restoril) 15 mg QHS PO Last administered on 08/04/17 19:53; Start 07/28/17 at 21:45 Melatonin 3 mg QHS PO Last administered on 08/04/17 19:51; Start 07/28/17 at 21:00 Risperidone (RisperDAL) 4 mg QHS PO Last administered on 08/04/17 19:51; Start 07/28/17 at 21:45 Insulin Detemir (Levemir) 70 units HS SQ Last administered on 08/04/17 19:56; Start 07/28/17 at 21:00 Hydrochlorothiazide (Microzide) 12.5 mg DAILY PO Last administered on 08:01; Start 07/29/17 at 09:00; Stop 08/04/17 at 16:34; Status DC Insulin Aspart (NovoLOG) TIDBFRMEAL SQ ; Start 07/29/17 at 11:30; Stop at 11:30; Status DC Non-Formulary Medication (Cefuroxime Axetil (Cefuroxime)) 250 mg BID PO ; Start 07/29/17 at 09:00; Stop 07/29/17 at 09:00; Status DC Losartan Potassium (Cozaar) 100 mg DAILY PO Last administered on 08/04/17 08: 04; Start 07/29/17 at 09:00 Non-Formulary Medication (Lovastatin ) 40 mg QHS PO ; Start 07/29/17 at 21:00; Stop 07/29/17 at 21:00; Status DC Multivitamins/ Calcium (Thera-M Plus) 1 tab DAILY PO Last administered on 08:01; Start 07/29/17 at 09:00 Non-Formulary Medication (Sitagliptin Phosphate (Januvia)) 100 mg DAILY PO ; Start 07/29/17 at 09:00; Stop 07/29/17 at 09:00; Status DC Coenzyme Q10 (Coenzyme Q10) 100 mg DAILYWSUP PO Last administered on 08/04/17 17:16; Start 07/30/17 at 17:00 Atorvastatin Calcium (Lipitor) 10 mg QHS PO Last administered on 3/29/18at 19: 51; Start 07/29/17 at 21:00 Linagliptin (Tradjenta) 5 mg DAILY PO Last administered on 08/04/17 08:01; Start 07/29/17 at 09:00 Cefpodoxime Proxetil (Vantin) 100 mg BID PO Last administered on 08/02/17at 20: 11; Start 07/29/17 at 09:00; Stop 08/02/17 at 21:01; Status DC Lactobacillus Rhamnosus (Culturelle) 1 cap BID PO Last administered on 19:51; Start 07/29/17 at 09:00 Insulin Aspart (NovoLOG) 20 units TIDBFRMEAL SQ Last administered on 08/04/17at 12:03; Start 07/29/17 at 09:30 Insulin Detemir (Levemir) 30 units DAILY08 SQ Last administered on 08/04/17 08 :00; Start 07/30/17 at 08:00 Oxcarbazepine (Trileptal) 300 mg BID PO Last administered on 08/03/17at 07:45; Start 07/29/17 at 21:00; Stop 08/03/17 at 18:45; Status DC Divalproex Sodium (Depakote Er) 500 mg QHS PO Last administered on 08/03/17 19 :49; Start 08/01/17 at 21:00; Stop 08/04/17 at 11:04; Status DC Ondansetron HCl (Zofran Odt) 4 mg PRN Q4HRS PRN PO NAUSEA/VOMITING Last administered on 08/03/17 17:27; Start 08/02/17 at 07:45 Divalproex Sodium (Depakote Er) 1,000 mg QHS PO Last administered on 08/04/17 19:54; Start 08/04/17 at 21:00 Active Scripts Active Reported Novolog Flexpen (Insulin Aspart) 100 Unit/1 Ml Insuln.pen 0 SQ TIDBFRMEAL Hydrochlorothiazide Capsule (Hydrochlorothiazide) 12.5 Mg Capsule 12.5 Mg PO DAILY Ubiquinol 100 Mg Capsule 100 Mg PO DAILYWSUP Temazepam 15 Mg Capsule 15 Mg PO QHS Januvia (Sitagliptin Phosphate) 100 Mg Tablet 100 Mg PO DAILY Risperidone 4 Mg Tablet 4 Mg PO QHS Multivitamins (Multivitamin) 1 Each Tablet 1 Tab PO DAILY Melatonin 3 Mg Tablet 3 Mg PO QHS Lovastatin 40 Mg Tablet 40 Mg PO QHS Losartan Potassium 100 Mg Tablet 100 Mg PO DAILY Levemir Flextouch (Insulin Detemir) 100 Unit/1 Ml Insuln.pen 70 Unit SQ HS Cefuroxime (Cefuroxime Axetil) 500 Mg Tablet 250 Mg PO BID 5 Days I have reviewed the current psychotropics carefully including drug interactions. Risk benefit ratio favors no change other than as noted in my dictated progress note. Diagnosis: Problems: (1) Behavior problem (2) Anxiety disorder (3) Confusion (4) Bipolar 1 disorder, manic, moderate (5) Schizoaffective disorder JAY DOE MD Aug 04, 2017 20:53
[2017-08-05 06:10] VITALS: BP 128/67
[2017-08-05 07:40] LABS: ALBUMIN 3.1 g/dL (3.4-5.0); ALBUMIN/GLOBULIN RATIO 0.8 (1.0-1.7); CALCIUM 8.7 mg/dL (8.5-10.1); CREATININE 0.8 mg/dL (0.6-1.0); GFR 72.9; POTASSIUM 4.1 mmol/L (3.5-5.1); TOTAL BILIRUBIN 0.4 mg/dL (0.2-1.0); TOTAL PROTEIN 6.8 g/dL (6.4-8.2)
[2017-08-05] MEDS: LACTOBACILLUS RHAMNOSUS GG 1 CAPSULE. PO SCH ×2 (08:03→19:58)
[2017-08-05] MEDS: MULTIVITAMIN with MINERAL TABLET. PO SCH (08:04)
[2017-08-05] MEDS: LINAGLIPTIN 5 MG TABLET PO SCH (08:04)
[2017-08-05] MEDS: LOSARTAN 50 MG TABLET. PO SCH (08:04)
[2017-08-05] MEDS: INSULIN ASPART 300 UNITS/3 ML INSULN.PEN SQ SCH ×3 (08:05→16:59)
[2017-08-05] MEDS: INSULIN DETEMIR 300 UNITS/3 ML INSULN.PEN. SQ SCH ×2 (08:14→20:00)
[2017-08-05 16:20] VITALS: BP 136/88
[2017-08-05] MEDS: UBIDECARENONE 50 MG CAPSULE. PO SCH (16:59)
[2017-08-05] MEDS: MELATONIN 3 MG TABLET PO SCH (19:57)
[2017-08-05] MEDS: ATORVASTATIN CALCIUM 10 MG TABLET. PO SCH (19:57)
[2017-08-05] MEDS: TEMAZEPAM 15 MG CAPSULE PO SCH (19:58)
[2017-08-05] MEDS: DIVALPROEX ER 500 MG TAB.ER.24H PO SCH (19:58)
[2017-08-05] MEDS: risperiDONE 2 MG TABLET. PO SCH (19:58)
--- NOTE | 2017-08-05 20:58 | PDOC ---
Exam Note: Naseem Note: Please also refer to the separate dictated note~for this date of service dictated separately.~Patient seen individually. Discussed the patient with Nursing staff reviewed the chart.~Reviewed interim history and current functioning. Reviewed vital signs,~Labs/ Radiology~and current medications noted below. Continue current treatment with the changes noted in the dictated addendum note Assessment: Vital Signs: Vital Signs Date Time Temp Pulse Resp B/P (MAP) Pulse Ox O2 Delivery O2 Flow Rate FiO2 08/05/17 16:20 97.8 72 18 136/88 (104) 97 08/01/17 08:44 Room Air I&O Intake and Output 08/05/17 07:00 Intake Total 1080 ml Balance 1080 ml Intake Oral 1080 ml # Voids 1 Labs: Laboratory Tests Test 08/05/17 06:58 08/05/17 07:30 08/05/17 11:41 08/05/17 16:51 Sodium Level 130 mmol/L (136-145) L Potassium Level 4.1 mmol/L (3.5-5.1) Chloride Level 91 mmol/L (98-107) L Carbon Dioxide Level 33 mmol/L (21-32) H Anion Gap 6 (6-14) Blood Urea Nitrogen 14 mg/dL (7-20) Creatinine 0.8 mg/dL (0.6-1.0) Estimated GFR (Cockcroft-Gault) 72.9 BUN/Creatinine Ratio 18 (6-20) Glucose Level 113 mg/dL (70-99) H Calcium Level 8.7 mg/dL (8.5-10.1) Total Bilirubin 0.4 mg/dL (0.2-1.0) Aspartate Amino Transferase (AST) 16 U/L (15-37) Alanine Aminotransferase (ALT) 31 U/L (14-59) Alkaline Phosphatase 79 U/L (46-116) Total Protein 6.8 g/dL (6.4-8.2) Albumin 3.1 g/dL (3.4-5.0) L Albumin/Globulin Ratio 0.8 (1.0-1.7) L Glucose (Fingerstick) 109 mg/dL (70-99) H 118 mg/dL (70-99) H 269 mg/dL (70-99) H Test 08/05/17 19:04 Glucose (Fingerstick) 302 mg/dL (70-99) H Current Medications: Meds: Current Medications Acetaminophen (Tylenol) 650 mg PRN Q6HRS PRN PO PAIN / TEMP Last administered on 08/04/17at 04:36; Start 07/28/17 at 20:00 Al Hydroxide/Mg Hydroxide (Mylanta Plus Xs) 15 ml PRN AFTMEALHC PRN PO DYSPEPSIA; Start 07/28/17 at 20:00; Stop 07/28/17 at 20:05; Status DC Magnesium Hydroxide (Milk Of Magnesia) 2,400 mg PRN QHS PRN PO CONSTIPATION; Start 07/28/17 at 20:00; Stop 07/28/17 at 20:05; Status DC Temazepam (Restoril) 15 mg QHS PO Last administered on 08/05/17 19:58; Start 07/28/17 at 21:45 Melatonin 3 mg QHS PO Last administered on 08/05/17 19:57; Start 07/28/17 at 21:00 Risperidone (RisperDAL) 4 mg QHS PO Last administered on 08/05/17 19:58; Start 07/28/17 at 21:45 Insulin Detemir (Levemir) 70 units HS SQ Last administered on 08/05/17at 20:00; Start 07/28/17 at 21:00 Hydrochlorothiazide (Microzide) 12.5 mg DAILY PO Last administered on at 08:01; Start 07/29/17 at 09:00; Stop 08/04/17 at 16:34; Status DC Insulin Aspart (NovoLOG) TIDBFRMEAL SQ ; Start 07/29/17 at 11:30; Stop at 11:30; Status DC Non-Formulary Medication (Cefuroxime Axetil (Cefuroxime)) 250 mg BID PO ; Start 07/29/17 at 09:00; Stop 07/29/17 at 09:00; Status DC Losartan Potassium (Cozaar) 100 mg DAILY PO Last administered on 08/05/17at 08: 04; Start 07/29/17 at 09:00 Non-Formulary Medication (Lovastatin ) 40 mg QHS PO ; Start 07/29/17 at 21:00; Stop 07/29/17 at 21:00; Status DC Multivitamins/ Calcium (Thera-M Plus) 1 tab DAILY PO Last administered on 08:04; Start 07/29/17 at 09:00 Non-Formulary Medication (Sitagliptin Phosphate (Januvia)) 100 mg DAILY PO ; Start 07/29/17 at 09:00; Stop 07/29/17 at 09:00; Status DC Coenzyme Q10 (Coenzyme Q10) 100 mg DAILYWSUP PO Last administered on 08/05/17 16:59; Start 07/30/17 at 17:00 Atorvastatin Calcium (Lipitor) 10 mg QHS PO Last administered on 08/05/17 19: 57; Start 07/29/17 at 21:00 Linagliptin (Tradjenta) 5 mg DAILY PO Last administered on 08/05/17 08:04; Start 07/29/17 at 09:00 Cefpodoxime Proxetil (Vantin) 100 mg BID PO Last administered on 08/02/17at 20: 11; Start 07/29/17 at 09:00; Stop 08/02/17 at 21:01; Status DC Lactobacillus Rhamnosus (Culturelle) 1 cap BID PO Last administered on 19:58; Start 07/29/17 at 09:00 Insulin Aspart (NovoLOG) 20 units TIDBFRMEAL SQ Last administered on 08/05/17 16:59; Start 07/29/17 at 09:30 Insulin Detemir (Levemir) 30 units DAILY08 SQ Last administered on 08/05/17 08 :14; Start 07/30/17 at 08:00 Oxcarbazepine (Trileptal) 300 mg BID PO Last administered on 08/03/17 07:45; Start 07/29/17 at 21:00; Stop 08/03/17 at 18:45; Status DC Divalproex Sodium (Depakote Er) 500 mg QHS PO Last administered on 08/03/17 19 :49; Start 08/01/17 at 21:00; Stop 08/04/17 at 11:04; Status DC Ondansetron HCl (Zofran Odt) 4 mg PRN Q4HRS PRN PO NAUSEA/VOMITING Last administered on 08/03/17 17:27; Start 08/02/17 at 07:45 Divalproex Sodium (Depakote Er) 1,000 mg QHS PO Last administered on 08/05/17at 19:58; Start 08/04/17 at 21:00 Active Scripts Active Reported Novolog Flexpen (Insulin Aspart) 100 Unit/1 Ml Insuln.pen 0 SQ TIDBFRMEAL Hydrochlorothiazide Capsule (Hydrochlorothiazide) 12.5 Mg Capsule 12.5 Mg PO DAILY Ubiquinol 100 Mg Capsule 100 Mg PO DAILYWSUP Temazepam 15 Mg Capsule 15 Mg PO QHS Januvia (Sitagliptin Phosphate) 100 Mg Tablet 100 Mg PO DAILY Risperidone 4 Mg Tablet 4 Mg PO QHS Multivitamins (Multivitamin) 1 Each Tablet 1 Tab PO DAILY Melatonin 3 Mg Tablet 3 Mg PO QHS Lovastatin 40 Mg Tablet 40 Mg PO QHS Losartan Potassium 100 Mg Tablet 100 Mg PO DAILY Levemir Flextouch (Insulin Detemir) 100 Unit/1 Ml Insuln.pen 70 Unit SQ HS Cefuroxime (Cefuroxime Axetil) 500 Mg Tablet 250 Mg PO BID 5 Days I have reviewed the current psychotropics carefully including drug interactions. Risk benefit ratio favors no change other than as noted in my dictated progress note. Diagnosis: Problems: (1) Behavior problem (2) Anxiety disorder (3) Confusion (4) Bipolar 1 disorder, manic, moderate (5) Schizoaffective disorder JAY DOE MD Aug 05, 2017 20:58
--- NOTE | 2017-08-05 23:56 | PN ---
DATE: 08/03/2017 This is a late entry for 08/03/2017 covers elements not covered in my initial note of 08/03/2017. SUBJECTIVE: I met with the patient evening of 08/03/2017. Overall, the patient is more cooperative on the unit, still somewhat racing in her thoughts, minimizes much of this. Denies many of the bipolar symptoms when directly questioned, but her past history when reviewed, she is able to accept the diagnosis. REVIEW OF SYSTEMS: No CV, , pulmonary, eye system symptoms on review. Discussed with social service staff Migdalia who had questions about the patient's diagnosis, address the bases of her diagnosis, past treatment, current treatment, prognosis, plans. MENTAL STATUS EXAM: Reasonably oriented. Speech has some latency, coherent. Abstraction fair, computation impaired, language function intact, attention span short. Mood and affect remain somewhat anxious, a little dysphoric, labile at times, but showing improvement. LABORATORY DATA: Reviewed. IMPRESSION: Bipolar 1 disorder, mixed with history of psychotic features. Rest unchanged. PLAN: Stop the Trileptal as she has been started on Depakote ER 500 mg p.o. at bedtime. Check labs level on the Depakote. Adjust to reach therapeutic. JAY DOE MD DR: KRISTY/german JOB#: [id number] / [id number]
--- NOTE | 2017-08-06 01:51 | PN ---
DATE: 08/04/2017 PSYCHIATRIC PROGRESS NOTE This is a late entry of 08/04/2017 covers elements not covered in my initial note of 08/04/2017. I met with the patient in the evening of 08/04/2017 and staffed treatment team meeting in the morning. Sleeping average 7 hours, slept 7-1/2 hours previous evening. Appetite is 80%. Sodium low at 125, chloride 89, probably might be contributed by the Trileptal, which we have since stopped. Complains of some occasional nausea. REVIEW OF SYSTEMS: Other than nausea, no CV, , pulmonary, eye system symptoms on review. MENTAL STATUS EXAMINATION: Reasonably oriented. Speech coherent, abstraction fair, computation somewhat impaired, language function intact. No active suicidal or homicidal ideation. Mood and affect are improved, still at times labile. LABORATORY DATA: Reviewed. IMPRESSION: Bipolar 1 disorder, mixed. PLAN: Valproic acid level is 36 on Depakote ER 500 mg at bedtime. We will increase to 1000 mg at bedtime. Check CBC, CMP, and valproic acid level in 3 days. Continue rest unchanged. MAN Kaur DOE MD DR: KRISTY/german JOB#: [id number] / [id number]
[2017-08-06 05:56] VITALS: BP 136/62
[2017-08-06] MEDS: LOSARTAN 50 MG TABLET. PO SCH (08:23)
[2017-08-06] MEDS: LINAGLIPTIN 5 MG TABLET PO SCH (08:23)
[2017-08-06] MEDS: LACTOBACILLUS RHAMNOSUS GG 1 CAPSULE. PO SCH ×2 (08:23→19:53)
[2017-08-06] MEDS: MULTIVITAMIN with MINERAL TABLET. PO SCH (08:23)
[2017-08-06] MEDS: INSULIN ASPART 300 UNITS/3 ML INSULN.PEN SQ SCH ×3 (08:24→17:31)
[2017-08-06] MEDS: INSULIN DETEMIR 300 UNITS/3 ML INSULN.PEN. SQ SCH ×2 (08:25→19:54)
[2017-08-06 15:50] VITALS: BP 137/71
[2017-08-06] MEDS: UBIDECARENONE 50 MG CAPSULE. PO SCH (17:29)
[2017-08-06] MEDS: TEMAZEPAM 15 MG CAPSULE PO SCH (19:52)
[2017-08-06] MEDS: risperiDONE 2 MG TABLET. PO SCH (19:53)
[2017-08-06] MEDS: DIVALPROEX ER 500 MG TAB.ER.24H PO SCH (19:53)
[2017-08-06] MEDS: MELATONIN 3 MG TABLET PO SCH (19:53)
[2017-08-06] MEDS: ATORVASTATIN CALCIUM 10 MG TABLET. PO SCH (19:53)
--- NOTE | 2017-08-06 22:49 | PDOC ---
Exam Note: Naseem Note: Please also refer to the separate dictated note~for this date of service dictated separately.~Patient seen individually. Discussed the patient with Nursing staff reviewed the chart.~Reviewed interim history and current functioning. Reviewed vital signs,~Labs/ Radiology~and current medications noted below. Continue current treatment with the changes noted in the dictated addendum note Assessment: Vital Signs: Vital Signs Date Time Temp Pulse Resp B/P (MAP) Pulse Ox O2 Delivery O2 Flow Rate FiO2 08/06/17 15:50 97.7 71 18 137/71 (93) 98 08/01/17 08:44 Room Air I&O Intake and Output 08/06/17 07:00 Intake Total 1320 ml Balance 1320 ml Intake Oral 1320 ml # Bowel Movements 1 Labs: Laboratory Tests Test 08/06/17 07:04 08/06/17 12:00 08/06/17 16:35 08/06/17 19:04 Glucose (Fingerstick) 140 mg/dL (70-99) H 265 mg/dL (70-99) H 146 mg/dL (70-99) H 261 mg/dL (70-99) H Current Medications: Meds: Current Medications Acetaminophen (Tylenol) 650 mg PRN Q6HRS PRN PO PAIN / TEMP Last administered on 08/04/17at 04:36; Start 07/28/17 at 20:00 Al Hydroxide/Mg Hydroxide (Mylanta Plus Xs) 15 ml PRN AFTMEALHC PRN PO DYSPEPSIA; Start 07/28/17 at 20:00; Stop 07/28/17 at 20:05; Status DC Magnesium Hydroxide (Milk Of Magnesia) 2,400 mg PRN QHS PRN PO CONSTIPATION; Start 07/28/17 at 20:00; Stop 07/28/17 at 20:05; Status DC Temazepam (Restoril) 15 mg QHS PO Last administered on 08/06/17at 19:52; Start 07/28/17 at 21:45 Melatonin 3 mg QHS PO Last administered on 08/06/17at 19:53; Start 07/28/17 at 21:00 Risperidone (RisperDAL) 4 mg QHS PO Last administered on 08/06/17at 19:53; Start 07/28/17 at 21:45 Insulin Detemir (Levemir) 70 units HS SQ Last administered on 08/06/17 19:54; Start 07/28/17 at 21:00 Hydrochlorothiazide (Microzide) 12.5 mg DAILY PO Last administered on 08:01; Start 07/29/17 at 09:00; Stop 08/04/17 at 16:34; Status DC Insulin Aspart (NovoLOG) TIDBFRMEAL SQ ; Start 07/29/17 at 11:30; Stop at 11:30; Status DC Non-Formulary Medication (Cefuroxime Axetil (Cefuroxime)) 250 mg BID PO ; Start 07/29/17 at 09:00; Stop 07/29/17 at 09:00; Status DC Losartan Potassium (Cozaar) 100 mg DAILY PO Last administered on 08/06/17 08: 23; Start 07/29/17 at 09:00 Non-Formulary Medication (Lovastatin ) 40 mg QHS PO ; Start 07/29/17 at 21:00; Stop 07/29/17 at 21:00; Status DC Multivitamins/ Calcium (Thera-M Plus) 1 tab DAILY PO Last administered on 08:23; Start 07/29/17 at 09:00 Non-Formulary Medication (Sitagliptin Phosphate (Januvia)) 100 mg DAILY PO ; Start 07/29/17 at 09:00; Stop 07/29/17 at 09:00; Status DC Coenzyme Q10 (Coenzyme Q10) 100 mg DAILYWSUP PO Last administered on 08/06/17 17:29; Start 07/30/17 at 17:00 Atorvastatin Calcium (Lipitor) 10 mg QHS PO Last administered on 08/06/17 19: 53; Start 07/29/17 at 21:00 Linagliptin (Tradjenta) 5 mg DAILY PO Last administered on 08/06/17 08:23; Start 07/29/17 at 09:00 Cefpodoxime Proxetil (Vantin) 100 mg BID PO Last administered on 08/02/17at 20: 11; Start 07/29/17 at 09:00; Stop 08/02/17 at 21:01; Status DC Lactobacillus Rhamnosus (Culturelle) 1 cap BID PO Last administered on 19:53; Start 07/29/17 at 09:00 Insulin Aspart (NovoLOG) 20 units TIDBFRMEAL SQ Last administered on 08/06/17at 17:31; Start 07/29/17 at 09:30 Insulin Detemir (Levemir) 30 units DAILY08 SQ Last administered on 08/06/17 08 :25; Start 07/30/17 at 08:00 Oxcarbazepine (Trileptal) 300 mg BID PO Last administered on 08/03/17at 07:45; Start 07/29/17 at 21:00; Stop 08/03/17 at 18:45; Status DC Divalproex Sodium (Depakote Er) 500 mg QHS PO Last administered on 08/03/17at 19 :49; Start 08/01/17 at 21:00; Stop 08/04/17 at 11:04; Status DC Ondansetron HCl (Zofran Odt) 4 mg PRN Q4HRS PRN PO NAUSEA/VOMITING Last administered on 08/03/17at 17:27; Start 08/02/17 at 07:45 Divalproex Sodium (Depakote Er) 1,000 mg QHS PO Last administered on 08/06/17at 19:53; Start 08/04/17 at 21:00 Active Scripts Active Reported Novolog Flexpen (Insulin Aspart) 100 Unit/1 Ml Insuln.pen 0 SQ TIDBFRMEAL Hydrochlorothiazide Capsule (Hydrochlorothiazide) 12.5 Mg Capsule 12.5 Mg PO DAILY Ubiquinol 100 Mg Capsule 100 Mg PO DAILYWSUP Temazepam 15 Mg Capsule 15 Mg PO QHS Januvia (Sitagliptin Phosphate) 100 Mg Tablet 100 Mg PO DAILY Risperidone 4 Mg Tablet 4 Mg PO QHS Multivitamins (Multivitamin) 1 Each Tablet 1 Tab PO DAILY Melatonin 3 Mg Tablet 3 Mg PO QHS Lovastatin 40 Mg Tablet 40 Mg PO QHS Losartan Potassium 100 Mg Tablet 100 Mg PO DAILY Levemir Flextouch (Insulin Detemir) 100 Unit/1 Ml Insuln.pen 70 Unit SQ HS Cefuroxime (Cefuroxime Axetil) 500 Mg Tablet 250 Mg PO BID 5 Days I have reviewed the current psychotropics carefully including drug interactions. Risk benefit ratio favors no change other than as noted in my dictated progress note. Diagnosis: Problems: (1) Behavior problem (2) Anxiety disorder (3) Confusion (4) Bipolar 1 disorder, manic, moderate (5) Schizoaffective disorder JAY DOE MD Aug 06, 2017 22:49
[2017-08-07 05:59] VITALS: BP 132/54
[2017-08-07 07:04] LABS: BASO % 1 % (0-3); EOS # 0.1 x10^3/uL (0.0-0.7); EOS % 2 % (0-3); HEMATOCRIT 39.6 % (36.0-47.0); HEMOGLOBIN 13.5 g/dL (12.0-15.5); LYMPH % 30 % (24-48); MEAN CORPUSCULAR HEMOGLOBIN 29 pg (25-35); MEAN CORPUSCULAR HGB CONC 34 g/dL (31-37); MEAN CORPUSCULAR VOLUME 85 fL (79-100); MONO # 0.7 x10^3/uL (0.0-1.1); MONO % 11 % (0-9); NEUT # 3.8 x10^3uL (1.8-7.7); NEUT % 57 % (31-73); PLATELET COUNT 168 x10^3/uL (140-400); RED BLOOD COUNT 4.63 x10^6/uL (3.50-5.40); RED CELL DISTRIBUTION WIDTH 14.3 % (11.5-14.5); WHITE BLOOD COUNT 6.7 x10^3/uL (4.0-11.0)
[2017-08-07 07:17] LABS: ALBUMIN/GLOBULIN RATIO 0.8 (1.0-1.7); ALK PHOS 78 U/L (46-116); ALT (SGPT) 27 U/L (14-59); ANION GAP 3 (6-14); AST (SGOT) 11 U/L (15-37); BLOOD UREA NITROGEN 15 mg/dL (7-20); BUN/CREATININE RATIO 19 (6-20); CALCIUM 9.1 mg/dL (8.5-10.1); CARBON DIOXIDE 34 mmol/L (21-32); CHLORIDE 99 mmol/L (98-107); CREATININE 0.8 mg/dL (0.6-1.0); GFR 72.9; GLUCOSE 187 mg/dL (70-99); POTASSIUM 4.6 mmol/L (3.5-5.1); SODIUM 136 mmol/L (136-145); TOTAL BILIRUBIN 0.3 mg/dL (0.2-1.0); TOTAL PROTEIN 6.7 g/dL (6.4-8.2)
[2017-08-07 07:25] LABS: VAL ACID 62 mcg/mL (50-100)
[2017-08-07] MEDS: INSULIN ASPART 300 UNITS/3 ML INSULN.PEN SQ SCH ×3 (08:02→17:39)
[2017-08-07] MEDS: INSULIN DETEMIR 300 UNITS/3 ML INSULN.PEN. SQ SCH ×2 (08:04→19:43)
[2017-08-07] MEDS: LACTOBACILLUS RHAMNOSUS GG 1 CAPSULE. PO SCH ×2 (08:05→19:39)
[2017-08-07] MEDS: LOSARTAN 50 MG TABLET. PO SCH (08:05)
[2017-08-07] MEDS: LINAGLIPTIN 5 MG TABLET PO SCH (08:05)
[2017-08-07] MEDS: MULTIVITAMIN with MINERAL TABLET. PO SCH (08:05)
[2017-08-07] MEDS: ACETAMINOPHEN 325 MG TABLET PO PRN (09:15)
[2017-08-07 15:26] VITALS: BP 152/64
--- NOTE | 2017-08-07 17:05 | PN ---
DATE: 08/05/2017 PSYCHIATRIC PROGRESS NOTE This is a late entry 08/05/2017, covers elements not covered in my initial note 08/05/2017. SUBJECTIVE: I met with the patient the evening of 08/05/2017. Overall, the patient is doing better, somewhat more stable in her mood. REVIEW OF SYSTEMS: No CV, , pulmonary, eye, ENT system symptoms on review. MENTAL STATUS EXAM: Reasonably oriented. Speech coherent, abstraction fair, computation impaired, language function intact. Mood and affect showing improvement. No suicidal or homicidal ideation. LABORATORY DATA: Reviewed. IMPRESSION: Bipolar 1 disorder, mixed. Rest unchanged from initial note. PLAN: Continue current psychotropics, Depakote has been increased. Repeat labs and adjust thereafter. MAN Kaur DOE MD DR: KRISTY/german JOB#: [id number] / [id number]
[2017-08-07] MEDS: UBIDECARENONE 50 MG CAPSULE. PO SCH (17:38)
[2017-08-07] MEDS: DIVALPROEX ER 500 MG TAB.ER.24H PO SCH (19:39)
[2017-08-07] MEDS: MELATONIN 3 MG TABLET PO SCH (19:39)
[2017-08-07] MEDS: ATORVASTATIN CALCIUM 10 MG TABLET. PO SCH (19:39)
[2017-08-07] MEDS: risperiDONE 2 MG TABLET. PO SCH (19:41)
[2017-08-07] MEDS: TEMAZEPAM 15 MG CAPSULE PO SCH (19:41)
--- NOTE | 2017-08-07 21:59 | PDOC ---
Exam Note: Naseem Note: Please also refer to the separate dictated note~for this date of service dictated separately.~Patient seen individually. Discussed the patient with Nursing staff reviewed the chart.~Reviewed interim history and current functioning. Reviewed vital signs,~Labs/ Radiology~and current medications noted below. Continue current treatment with the changes noted in the dictated addendum note Assessment: Vital Signs: Vital Signs Date Time Temp Pulse Resp B/P (MAP) Pulse Ox O2 Delivery O2 Flow Rate FiO2 08/07/17 15:26 98.0 80 18 152/64 (93) 98 08/01/17 08:44 Room Air I&O Intake and Output 08/07/17 07:00 Intake Total 1440 ml Balance 1440 ml Intake Oral 1440 ml Labs: Laboratory Tests Test 08/07/17 06:48 08/07/17 07:23 08/07/17 11:57 08/07/17 16:41 White Blood Count 6.7 x10^3/uL (4.0-11.0) Red Blood Count 4.63 x10^6/uL (3.50-5.40) Hemoglobin 13.5 g/dL (12.0-15.5) Hematocrit 39.6 % (36.0-47.0) Mean Corpuscular Volume 85 fL (79-100) Mean Corpuscular Hemoglobin 29 pg (25-35) Mean Corpuscular Hemoglobin Concent 34 g/dL (31-37) Red Cell Distribution Width 14.3 % (11.5-14.5) Platelet Count 168 x10^3/uL (140-400) Neutrophils (%) (Auto) 57 % (31-73) Lymphocytes (%) (Auto) 30 % (24-48) Monocytes (%) (Auto) 11 % (0-9) H Eosinophils (%) (Auto) 2 % (0-3) Basophils (%) (Auto) 1 % (0-3) Neutrophils # (Auto) 3.8 x10^3uL (1.8-7.7) Lymphocytes # (Auto) 2.0 x10^3/uL (1.0-4.8) Monocytes # (Auto) 0.7 x10^3/uL (0.0-1.1) Eosinophils # (Auto) 0.1 x10^3/uL (0.0-0.7) Basophils # (Auto) 0.0 x10^3/uL (0.0-0.2) Sodium Level 136 mmol/L (136-145) Potassium Level 4.6 mmol/L (3.5-5.1) Chloride Level 99 mmol/L (98-107) Carbon Dioxide Level 34 mmol/L (21-32) H Anion Gap 3 (6-14) L Blood Urea Nitrogen 15 mg/dL (7-20) Creatinine 0.8 mg/dL (0.6-1.0) Estimated GFR (Cockcroft-Gault) 72.9 BUN/Creatinine Ratio 19 (6-20) Glucose Level 187 mg/dL (70-99) H Calcium Level 9.1 mg/dL (8.5-10.1) Total Bilirubin 0.3 mg/dL (0.2-1.0) Aspartate Amino Transferase (AST) 11 U/L (15-37) L Alanine Aminotransferase (ALT) 27 U/L (14-59) Alkaline Phosphatase 78 U/L (46-116) Total Protein 6.7 g/dL (6.4-8.2) Albumin 3.0 g/dL (3.4-5.0) L Albumin/Globulin Ratio 0.8 (1.0-1.7) L Valproic Acid Level 62 mcg/mL (50-100) Valproic Acid Last Dose Date 08/06/17 Valproic Acid Last Dose Time 2100 Glucose (Fingerstick) 167 mg/dL (70-99) H 188 mg/dL (70-99) H 309 mg/dL (70-99) H Test 08/07/17 19:16 Glucose (Fingerstick) 292 mg/dL (70-99) H Current Medications: Meds: Current Medications Acetaminophen (Tylenol) 650 mg PRN Q6HRS PRN PO PAIN / TEMP Last administered on 08/07/17at 09:15; Start 07/28/17 at 20:00 Al Hydroxide/Mg Hydroxide (Mylanta Plus Xs) 15 ml PRN AFTMEALHC PRN PO DYSPEPSIA; Start 07/28/17 at 20:00; Stop 07/28/17 at 20:05; Status DC Magnesium Hydroxide (Milk Of Magnesia) 2,400 mg PRN QHS PRN PO CONSTIPATION; Start 07/28/17 at 20:00; Stop 07/28/17 at 20:05; Status DC Temazepam (Restoril) 15 mg QHS PO Last administered on 08/07/17at 19:41; Start at 21:45 Melatonin 3 mg QHS PO Last administered on 08/07/17at 19:39; Start 07/28/17 at 21 :00 Risperidone (RisperDAL) 4 mg QHS PO Last administered on 08/07/17 19:41; Start 07/28/17 at 21:45; Stop 08/07/17 at 21:47; Status DC Insulin Detemir (Levemir) 70 units HS SQ Last administered on 08/07/17 19:43; Start 07/28/17 at 21:00 Hydrochlorothiazide (Microzide) 12.5 mg DAILY PO Last administered on at 08:01; Start 07/29/17 at 09:00; Stop 08/04/17 at 16:34; Status DC Insulin Aspart (NovoLOG) TIDBFRMEAL SQ ; Start 07/29/17 at 11:30; Stop at 11:30; Status DC Non-Formulary Medication (Cefuroxime Axetil (Cefuroxime)) 250 mg BID PO ; Start 07/29/17 at 09:00; Stop 07/29/17 at 09:00; Status DC Losartan Potassium (Cozaar) 100 mg DAILY PO Last administered on 08/07/17at 08:05 ; Start 07/29/17 at 09:00 Non-Formulary Medication (Lovastatin ) 40 mg QHS PO ; Start 07/29/17 at 21:00; Stop 07/29/17 at 21:00; Status DC Multivitamins/ Calcium (Thera-M Plus) 1 tab DAILY PO Last administered on at 08:05; Start 07/29/17 at 09:00 Non-Formulary Medication (Sitagliptin Phosphate (Januvia)) 100 mg DAILY PO ; Start 07/29/17 at 09:00; Stop 07/29/17 at 09:00; Status DC Coenzyme Q10 (Coenzyme Q10) 100 mg DAILYWSUP PO Last administered on 08/07/17at 17:38; Start 07/30/17 at 17:00 Atorvastatin Calcium (Lipitor) 10 mg QHS PO Last administered on 08/07/17 19:39 ; Start 07/29/17 at 21:00 Linagliptin (Tradjenta) 5 mg DAILY PO Last administered on 08/07/17 08:05; Start 07/29/17 at 09:00 Cefpodoxime Proxetil (Vantin) 100 mg BID PO Last administered on 08/02/17 20: 11; Start 07/29/17 at 09:00; Stop 08/02/17 at 21:01; Status DC Lactobacillus Rhamnosus (Culturelle) 1 cap BID PO Last administered on 19:39; Start 07/29/17 at 09:00 Insulin Aspart (NovoLOG) 20 units TIDBFRMEAL SQ Last administered on 08/07/17 17:39; Start 07/29/17 at 09:30 Insulin Detemir (Levemir) 30 units DAILY08 SQ Last administered on 08/07/17 08: 04; Start 07/30/17 at 08:00 Oxcarbazepine (Trileptal) 300 mg BID PO Last administered on 08/03/17 07:45; Start 07/29/17 at 21:00; Stop 08/03/17 at 18:45; Status DC Divalproex Sodium (Depakote Er) 500 mg QHS PO Last administered on 08/03/17 19 :49; Start 08/01/17 at 21:00; Stop 08/04/17 at 11:04; Status DC Ondansetron HCl (Zofran Odt) 4 mg PRN Q4HRS PRN PO NAUSEA/VOMITING Last administered on 08/03/17 17:27; Start 08/02/17 at 07:45 Divalproex Sodium (Depakote Er) 1,000 mg QHS PO Last administered on 08/07/17 19:39; Start 08/04/17 at 21:00 Risperidone (RisperDAL) 3.5 mg QHS PO ; Start 08/08/17 at 21:00 Active Scripts Active Reported Novolog Flexpen (Insulin Aspart) 100 Unit/1 Ml Insuln.pen 0 SQ TIDBFRMEAL Hydrochlorothiazide Capsule (Hydrochlorothiazide) 12.5 Mg Capsule 12.5 Mg PO DAILY Ubiquinol 100 Mg Capsule 100 Mg PO DAILYWSUP Temazepam 15 Mg Capsule 15 Mg PO QHS Januvia (Sitagliptin Phosphate) 100 Mg Tablet 100 Mg PO DAILY Risperidone 4 Mg Tablet 4 Mg PO QHS Multivitamins (Multivitamin) 1 Each Tablet 1 Tab PO DAILY Melatonin 3 Mg Tablet 3 Mg PO QHS Lovastatin 40 Mg Tablet 40 Mg PO QHS Losartan Potassium 100 Mg Tablet 100 Mg PO DAILY Levemir Flextouch (Insulin Detemir) 100 Unit/1 Ml Insuln.pen 70 Unit SQ HS Cefuroxime (Cefuroxime Axetil) 500 Mg Tablet 250 Mg PO BID 5 Days I have reviewed the current psychotropics carefully including drug interactions. Risk benefit ratio favors no change other than as noted in my dictated progress note. Diagnosis: Problems: (1) Behavior problem (2) Anxiety disorder (3) Confusion (4) Bipolar 1 disorder, manic, moderate (5) Schizoaffective disorder JAY DOE MD Aug 07, 2017 21:59
[2017-08-08 06:18] VITALS: BP 142/69
[2017-08-08] MEDS: LOSARTAN 50 MG TABLET. PO SCH (07:57)
[2017-08-08] MEDS: LINAGLIPTIN 5 MG TABLET PO SCH (07:58)
[2017-08-08] MEDS: LACTOBACILLUS RHAMNOSUS GG 1 CAPSULE. PO SCH ×2 (07:58→19:32)
[2017-08-08] MEDS: MULTIVITAMIN with MINERAL TABLET. PO SCH (07:58)
[2017-08-08] MEDS: INSULIN DETEMIR 300 UNITS/3 ML INSULN.PEN. SQ SCH ×2 (08:00→19:34)
[2017-08-08] MEDS: INSULIN ASPART 300 UNITS/3 ML INSULN.PEN SQ SCH ×3 (08:02→16:51)
--- NOTE | 2017-08-08 15:51 | PN ---
DATE: 08/06/2017 This late entry, 08/06/2017, covers elements not covered in my initial note 08/06/2017. SUBJECTIVE: I met with the patient the evening of 08/06/2017. The patient has been quite pleasant on the unit, cooperative, less labile in her mood, more insightful. REVIEW OF SYSTEMS: No CV, , pulmonary, eye, ENT system symptoms on review. Reliability fair. MENTAL STATUS EXAM: Oriented reasonably. Speech is coherent, abstraction fair, computation impaired, language function intact, attention span fair. Mood and affect is improved. LABORATORY DATA: Reviewed. IMPRESSION: Bipolar 1 disorder, mixed. Rest unchanged. PLAN: Continue current psychotropics. Depakote was increased. Repeat labs and adjust further as clinically indicated. MAN aKur DOE MD DR: KRISTY/german JOB#: [id number] / [id number]
[2017-08-08 15:53] VITALS: BP 144/83
[2017-08-08] MEDS: UBIDECARENONE 50 MG CAPSULE. PO SCH (16:51)
[2017-08-08] MEDS: ATORVASTATIN CALCIUM 10 MG TABLET. PO SCH (19:32)
[2017-08-08] MEDS: MELATONIN 3 MG TABLET PO SCH (19:32)
[2017-08-08] MEDS: DIVALPROEX ER 500 MG TAB.ER.24H PO SCH (19:32)
[2017-08-08] MEDS: TEMAZEPAM 15 MG CAPSULE PO SCH (19:36)
--- NOTE | 2017-08-08 20:59 | PDOC ---
Exam Note: Naseem Note: Please also refer to the separate dictated note~for this date of service dictated separately.~Patient seen individually. Discussed the patient with Nursing staff reviewed the chart.~Reviewed interim history and current functioning. Reviewed vital signs,~Labs/ Radiology~and current medications noted below. Continue current treatment with the changes noted in the dictated addendum note Assessment: Vital Signs: Vital Signs Date Time Temp Pulse Resp B/P (MAP) Pulse Ox O2 Delivery O2 Flow Rate FiO2 08/08/17 15:53 98.4 77 18 144/83 (103) 98 Room Air I&O Intake and Output 08/08/17 07:00 Intake Total 1200 ml Balance 1200 ml Intake Oral 1200 ml # Voids 1 # Bowel Movements 1 Labs: Laboratory Tests Test 08/08/17 07:13 08/08/17 11:15 08/08/17 16:25 08/08/17 19:05 Glucose (Fingerstick) 154 mg/dL (70-99) H 116 mg/dL (70-99) H 148 mg/dL (70-99) H 228 mg/dL (70-99) H Current Medications: Meds: Current Medications Acetaminophen (Tylenol) 650 mg PRN Q6HRS PRN PO PAIN / TEMP Last administered on 08/07/17at 09:15; Start 07/28/17 at 20:00 Al Hydroxide/Mg Hydroxide (Mylanta Plus Xs) 15 ml PRN AFTMEALHC PRN PO DYSPEPSIA; Start 07/28/17 at 20:00; Stop 07/28/17 at 20:05; Status DC Magnesium Hydroxide (Milk Of Magnesia) 2,400 mg PRN QHS PRN PO CONSTIPATION; Start 07/28/17 at 20:00; Stop 07/28/17 at 20:05; Status DC Temazepam (Restoril) 15 mg QHS PO Last administered on 08/08/17at 19:36; Start at 21:45 Melatonin 3 mg QHS PO Last administered on 08/08/17at 19:32; Start 07/28/17 at 21 :00 Risperidone (RisperDAL) 4 mg QHS PO Last administered on 08/07/17at 19:41; Start 07/28/17 at 21:45; Stop 08/07/17 at 21:47; Status DC Insulin Detemir (Levemir) 70 units HS SQ Last administered on 08/08/17 19:34; Start 07/28/17 at 21:00 Hydrochlorothiazide (Microzide) 12.5 mg DAILY PO Last administered on at 08:01; Start 07/29/17 at 09:00; Stop 08/04/17 at 16:34; Status DC Insulin Aspart (NovoLOG) TIDBFRMEAL SQ ; Start 07/29/17 at 11:30; Stop at 11:30; Status DC Non-Formulary Medication (Cefuroxime Axetil (Cefuroxime)) 250 mg BID PO ; Start 07/29/17 at 09:00; Stop 07/29/17 at 09:00; Status DC Losartan Potassium (Cozaar) 100 mg DAILY PO Last administered on 08/08/17 07:57 ; Start 07/29/17 at 09:00 Non-Formulary Medication (Lovastatin ) 40 mg QHS PO ; Start 07/29/17 at 21:00; Stop 07/29/17 at 21:00; Status DC Multivitamins/ Calcium (Thera-M Plus) 1 tab DAILY PO Last administered on 07:58; Start 07/29/17 at 09:00 Non-Formulary Medication (Sitagliptin Phosphate (Januvia)) 100 mg DAILY PO ; Start 07/29/17 at 09:00; Stop 07/29/17 at 09:00; Status DC Coenzyme Q10 (Coenzyme Q10) 100 mg DAILYWSUP PO Last administered on 08/08/17 16:51; Start 07/30/17 at 17:00 Atorvastatin Calcium (Lipitor) 10 mg QHS PO Last administered on 08/08/17 19:32 ; Start 07/29/17 at 21:00 Linagliptin (Tradjenta) 5 mg DAILY PO Last administered on 08/08/17 07:58; Start 07/29/17 at 09:00 Cefpodoxime Proxetil (Vantin) 100 mg BID PO Last administered on 08/02/17at 20: 11; Start 07/29/17 at 09:00; Stop 08/02/17 at 21:01; Status DC Lactobacillus Rhamnosus (Culturelle) 1 cap BID PO Last administered on 19:32; Start 07/29/17 at 09:00 Insulin Aspart (NovoLOG) 20 units TIDBFRMEAL SQ Last administered on 08/08/17 16:51; Start 07/29/17 at 09:30 Insulin Detemir (Levemir) 30 units DAILY08 SQ Last administered on 08/08/17 08: 00; Start 07/30/17 at 08:00 Oxcarbazepine (Trileptal) 300 mg BID PO Last administered on 08/03/17 07:45; Start 07/29/17 at 21:00; Stop 08/03/17 at 18:45; Status DC Divalproex Sodium (Depakote Er) 500 mg QHS PO Last administered on 08/03/17 19 :49; Start 08/01/17 at 21:00; Stop 08/04/17 at 11:04; Status DC Ondansetron HCl (Zofran Odt) 4 mg PRN Q4HRS PRN PO NAUSEA/VOMITING Last administered on 08/03/17 17:27; Start 08/02/17 at 07:45 Divalproex Sodium (Depakote Er) 1,000 mg QHS PO Last administered on 08/08/17 19:32; Start 08/04/17 at 21:00 Risperidone (RisperDAL) 3.5 mg QHS PO Last administered on 08/08/17 19:36; Start 08/08/17 at 21:00 Active Scripts Active Reported Novolog Flexpen (Insulin Aspart) 100 Unit/1 Ml Insuln.pen 0 SQ TIDBFRMEAL Hydrochlorothiazide Capsule (Hydrochlorothiazide) 12.5 Mg Capsule 12.5 Mg PO DAILY Ubiquinol 100 Mg Capsule 100 Mg PO DAILYWSUP Temazepam 15 Mg Capsule 15 Mg PO QHS Januvia (Sitagliptin Phosphate) 100 Mg Tablet 100 Mg PO DAILY Risperidone 4 Mg Tablet 4 Mg PO QHS Multivitamins (Multivitamin) 1 Each Tablet 1 Tab PO DAILY Melatonin 3 Mg Tablet 3 Mg PO QHS Lovastatin 40 Mg Tablet 40 Mg PO QHS Losartan Potassium 100 Mg Tablet 100 Mg PO DAILY Levemir Flextouch (Insulin Detemir) 100 Unit/1 Ml Insuln.pen 70 Unit SQ HS Cefuroxime (Cefuroxime Axetil) 500 Mg Tablet 250 Mg PO BID 5 Days I have reviewed the current psychotropics carefully including drug interactions. Risk benefit ratio favors no change other than as noted in my dictated progress note. Diagnosis: Problems: (1) Behavior problem (2) Anxiety disorder (3) Confusion (4) Bipolar 1 disorder, manic, moderate (5) Schizoaffective disorder JAY DOE MD Aug 08, 2017 20:59
[2017-08-08] MEDS ORDERED: risperiDONE 1 MG TABLET. PO SCH (21:00)
--- NOTE | 2017-08-09 03:29 | PN ---
DATE: 08/07/2017 This is a late entry for 08/07/2017 covers elements not covered in my initial note of 08/07/2017. SUBJECTIVE: I met with the patient in the evening of 08/07/2017. Overall, the patient has done better, less labile in her mood, less psychotic. REVIEW OF SYSTEMS: No CV, , pulmonary, eye, ENT system symptoms on review. Reliability fair. MENTAL STATUS EXAM: Reasonably oriented. Speech is coherent, has some latency. Abstraction fair, computation impaired, language function intact, attention span short. Mood and affect showing less withdrawal. LABORATORY DATA: Reviewed. IMPRESSION: Bipolar 1 disorder, mixed with psychotic features, in partial remission. Rest unchanged. Valproic acid level therapeutic at 62. PLAN: Continue Depakote at current dosage, reduce Risperdal from 4 mg at bedtime to 3.5 mg at bedtime. I would like to ultimately reduce it gradually back to 2 mg a day if we can do that, especially since she is stable on the Depakote, which is not something she was on previously and should help significantly with her mood, requiring lower dosage of Risperdal. MAN Kaur DOE MD DR: KRISTY/german JOB#: [id number] / [id number]
[2017-08-09 06:02] VITALS: BP 113/56
[2017-08-09] MEDS: LINAGLIPTIN 5 MG TABLET PO SCH (08:41)
[2017-08-09] MEDS: LACTOBACILLUS RHAMNOSUS GG 1 CAPSULE. PO SCH ×2 (08:41→19:27)
[2017-08-09] MEDS: MULTIVITAMIN with MINERAL TABLET. PO SCH (08:41)
[2017-08-09] MEDS: LOSARTAN 50 MG TABLET. PO SCH (08:42)
[2017-08-09] MEDS: INSULIN DETEMIR 300 UNITS/3 ML INSULN.PEN. SQ SCH ×2 (08:46→19:29)
[2017-08-09] MEDS: INSULIN ASPART 300 UNITS/3 ML INSULN.PEN SQ SCH ×3 (08:48→17:03)
[2017-08-09 15:37] VITALS: BP 166/93
[2017-08-09] MEDS: UBIDECARENONE 50 MG CAPSULE. PO SCH (17:01)
[2017-08-09] MEDS: risperiDONE 1 MG TABLET. PO SCH (19:27)
[2017-08-09] MEDS: DIVALPROEX ER 500 MG TAB.ER.24H PO SCH (19:28)
[2017-08-09] MEDS: ATORVASTATIN CALCIUM 10 MG TABLET. PO SCH (19:28)
[2017-08-09] MEDS: MELATONIN 3 MG TABLET PO SCH (19:28)
--- NOTE | 2017-08-09 20:56 | PDOC ---
Exam Note: Naseem Note: Please also refer to the separate dictated note~for this date of service dictated separately.~Patient seen individually. Discussed the patient with Nursing staff reviewed the chart.~Reviewed interim history and current functioning. Reviewed vital signs,~Labs/ Radiology~and current medications noted below. Continue current treatment with the changes noted in the dictated addendum note Assessment: Vital Signs: Vital Signs Date Time Temp Pulse Resp B/P (MAP) Pulse Ox O2 Delivery O2 Flow Rate FiO2 08/09/17 15:37 98.1 78 16 166/93 (117) 98 08/08/17 15:53 Room Air I&O Intake and Output 08/09/17 07:00 Intake Total 1440 ml Balance 1440 ml Intake Oral 1440 ml # Voids 1 # Bowel Movements 2 Labs: Laboratory Tests Test 08/09/17 07:45 08/09/17 11:56 08/09/17 16:44 08/09/17 19:16 Glucose (Fingerstick) 134 mg/dL (70-99) H 231 mg/dL (70-99) H 233 mg/dL (70-99) H 233 mg/dL (70-99) H Current Medications: Meds: Current Medications Acetaminophen (Tylenol) 650 mg PRN Q6HRS PRN PO PAIN / TEMP Last administered on 08/07/17at 09:15; Start 07/28/17 at 20:00 Al Hydroxide/Mg Hydroxide (Mylanta Plus Xs) 15 ml PRN AFTMEALHC PRN PO DYSPEPSIA; Start 07/28/17 at 20:00; Stop 07/28/17 at 20:05; Status DC Magnesium Hydroxide (Milk Of Magnesia) 2,400 mg PRN QHS PRN PO CONSTIPATION; Start 07/28/17 at 20:00; Stop 07/28/17 at 20:05; Status DC Temazepam (Restoril) 15 mg QHS PO Last administered on 08/08/17at 19:36; Start at 21:45 Melatonin 3 mg QHS PO Last administered on 08/09/17at 19:28; Start 07/28/17 at 21 :00 Risperidone (RisperDAL) 4 mg QHS PO Last administered on 08/07/17at 19:41; Start 07/28/17 at 21:45; Stop 08/07/17 at 21:47; Status DC Insulin Detemir (Levemir) 70 units HS SQ Last administered on 08/09/17 19:29; Start 07/28/17 at 21:00 Hydrochlorothiazide (Microzide) 12.5 mg DAILY PO Last administered on 08:01; Start 07/29/17 at 09:00; Stop 08/04/17 at 16:34; Status DC Insulin Aspart (NovoLOG) TIDBFRMEAL SQ ; Start 07/29/17 at 11:30; Stop at 11:30; Status DC Non-Formulary Medication (Cefuroxime Axetil (Cefuroxime)) 250 mg BID PO ; Start 07/29/17 at 09:00; Stop 07/29/17 at 09:00; Status DC Losartan Potassium (Cozaar) 100 mg DAILY PO Last administered on 08/09/17 08:42 ; Start 07/29/17 at 09:00 Non-Formulary Medication (Lovastatin ) 40 mg QHS PO ; Start 07/29/17 at 21:00; Stop 07/29/17 at 21:00; Status DC Multivitamins/ Calcium (Thera-M Plus) 1 tab DAILY PO Last administered on 08:41; Start 07/29/17 at 09:00 Non-Formulary Medication (Sitagliptin Phosphate (Januvia)) 100 mg DAILY PO ; Start 07/29/17 at 09:00; Stop 07/29/17 at 09:00; Status DC Coenzyme Q10 (Coenzyme Q10) 100 mg DAILYWSUP PO Last administered on 08/09/17 17:01; Start 07/30/17 at 17:00 Atorvastatin Calcium (Lipitor) 10 mg QHS PO Last administered on 08/09/17 19:28 ; Start 07/29/17 at 21:00 Linagliptin (Tradjenta) 5 mg DAILY PO Last administered on 08/09/17 08:41; Start 07/29/17 at 09:00 Cefpodoxime Proxetil (Vantin) 100 mg BID PO Last administered on 08/02/17at 20: 11; Start 07/29/17 at 09:00; Stop 08/02/17 at 21:01; Status DC Lactobacillus Rhamnosus (Culturelle) 1 cap BID PO Last administered on 19:27; Start 07/29/17 at 09:00 Insulin Aspart (NovoLOG) 20 units TIDBFRMEAL SQ Last administered on 08/09/17 17:03; Start 07/29/17 at 09:30 Insulin Detemir (Levemir) 30 units DAILY08 SQ Last administered on 08/09/17 08: 46; Start 07/30/17 at 08:00 Oxcarbazepine (Trileptal) 300 mg BID PO Last administered on 08/03/17 07:45; Start 07/29/17 at 21:00; Stop 08/03/17 at 18:45; Status DC Divalproex Sodium (Depakote Er) 500 mg QHS PO Last administered on 08/03/17 19 :49; Start 08/01/17 at 21:00; Stop 08/04/17 at 11:04; Status DC Ondansetron HCl (Zofran Odt) 4 mg PRN Q4HRS PRN PO NAUSEA/VOMITING Last administered on 08/03/17 17:27; Start 08/02/17 at 07:45 Divalproex Sodium (Depakote Er) 1,000 mg QHS PO Last administered on 08/09/17 19:28; Start 08/04/17 at 21:00 Risperidone (RisperDAL) 3.5 mg QHS PO Last administered on 08/08/17 19:36; Start 08/08/17 at 21:00; Stop 08/09/17 at 18:22; Status DC Risperidone (RisperDAL) 3 mg QHS PO Last administered on 08/09/17 19:27; Start 08/09/17 at 21:00 Active Scripts Active Reported Novolog Flexpen (Insulin Aspart) 100 Unit/1 Ml Insuln.pen 0 SQ TIDBFRMEAL Hydrochlorothiazide Capsule (Hydrochlorothiazide) 12.5 Mg Capsule 12.5 Mg PO DAILY Ubiquinol 100 Mg Capsule 100 Mg PO DAILYWSUP Temazepam 15 Mg Capsule 15 Mg PO QHS Januvia (Sitagliptin Phosphate) 100 Mg Tablet 100 Mg PO DAILY Risperidone 4 Mg Tablet 4 Mg PO QHS Multivitamins (Multivitamin) 1 Each Tablet 1 Tab PO DAILY Melatonin 3 Mg Tablet 3 Mg PO QHS Lovastatin 40 Mg Tablet 40 Mg PO QHS Losartan Potassium 100 Mg Tablet 100 Mg PO DAILY Levemir Flextouch (Insulin Detemir) 100 Unit/1 Ml Insuln.pen 70 Unit SQ HS Cefuroxime (Cefuroxime Axetil) 500 Mg Tablet 250 Mg PO BID 5 Days I have reviewed the current psychotropics carefully including drug interactions. Risk benefit ratio favors no change other than as noted in my dictated progress note. Diagnosis: Problems: (1) Behavior problem (2) Anxiety disorder (3) Confusion (4) Bipolar 1 disorder, manic, moderate (5) Schizoaffective disorder JAY DOE MD Aug 09, 2017 20:56
[2017-08-09] MEDS: TEMAZEPAM 15 MG CAPSULE PO SCH (21:07)
--- NOTE | 2017-08-09 22:01 | PN ---
DATE: 08/08/2017 This late entry 08/08/2017 covers elements not covered in my initial note 08/08/2017. Met with the patient in the evening of 08/08/2017. Overall, the patient has been quite pleasant, cooperative, slept 6-1/4 hours previous evening, compliant with medications and interactive per nursing staff. REVIEW OF SYSTEMS: No CV, , pulmonary, eye, ENT system symptoms on review. MENTAL STATUS EXAM: Reasonably oriented. Speech coherent, pleasant, verbal. Abstraction fair, computation somewhat impaired, language function intact. No suicidal or homicidal ideation. LABORATORY DATA: Reviewed. IMPRESSION: Bipolar 1 disorder, mixed. Rest unchanged. PLAN: Continue current psychotropics, Risperdal was reduced. I would like to reduce it further in the next day or two before transitioning her to outpatient. MAN Kaur DOE MD DR: KRISTY/german JOB#: [id number] / [id number]
[2017-08-10] MEDS: ACETAMINOPHEN 325 MG TABLET PO PRN (02:53)
[2017-08-10 06:02] VITALS: BP 144/56
[2017-08-10] MEDS: INSULIN ASPART 300 UNITS/3 ML INSULN.PEN SQ SCH ×3 (07:30→17:34)
[2017-08-10] MEDS: MULTIVITAMIN with MINERAL TABLET. PO SCH (08:27)
[2017-08-10] MEDS: LACTOBACILLUS RHAMNOSUS GG 1 CAPSULE. PO SCH ×2 (08:27→19:55)
[2017-08-10] MEDS: LINAGLIPTIN 5 MG TABLET PO SCH (08:28)
[2017-08-10] MEDS: LOSARTAN 50 MG TABLET. PO SCH (08:28)
[2017-08-10] MEDS: INSULIN DETEMIR 300 UNITS/3 ML INSULN.PEN. SQ SCH ×2 (08:29→19:59)
[2017-08-10 16:05] VITALS: BP_SYST 164; BP_SYST 166; BP_DIAS 82; BP_DIAS 94
[2017-08-10] MEDS: UBIDECARENONE 50 MG CAPSULE. PO SCH (17:33)
[2017-08-10] MEDS: ATORVASTATIN CALCIUM 10 MG TABLET. PO SCH (19:55)
[2017-08-10] MEDS: risperiDONE 1 MG TABLET. PO SCH (19:55)
[2017-08-10] MEDS: MELATONIN 3 MG TABLET PO SCH (19:56)
[2017-08-10] MEDS: DIVALPROEX ER 500 MG TAB.ER.24H PO SCH (19:56)
[2017-08-10] MEDS: TEMAZEPAM 15 MG CAPSULE PO SCH (19:57)
--- NOTE | 2017-08-10 20:56 | PDOC ---
Exam Note: Naseem Note: Please also refer to the separate dictated note~for this date of service dictated separately.~Patient seen individually. Discussed the patient with Nursing staff reviewed the chart.~Reviewed interim history and current functioning. Reviewed vital signs,~Labs/ Radiology~and current medications noted below. Continue current treatment with the changes noted in the dictated addendum note Assessment: Vital Signs: Vital Signs Date Time Temp Pulse Resp B/P (MAP) Pulse Ox O2 Delivery O2 Flow Rate FiO2 08/10/17 16:05 98.5 66 16 164/94 (117) 100 Room Air I&O Intake and Output 08/10/17 07:00 Intake Total 1560 ml Balance 1560 ml Intake Oral 1560 ml # Voids 1 Labs: Laboratory Tests Test 08/10/17 07:04 08/10/17 11:52 08/10/17 16:38 08/10/17 18:55 Glucose (Fingerstick) 94 mg/dL (70-99) 244 mg/dL (70-99) H 189 mg/dL (70-99) H 205 mg/dL (70-99) H Current Medications: Meds: Current Medications Acetaminophen (Tylenol) 650 mg PRN Q6HRS PRN PO PAIN / TEMP Last administered on 08/10/17at 02:53; Start 07/28/17 at 20:00 Al Hydroxide/Mg Hydroxide (Mylanta Plus Xs) 15 ml PRN AFTMEALHC PRN PO DYSPEPSIA; Start 07/28/17 at 20:00; Stop 07/28/17 at 20:05; Status DC Magnesium Hydroxide (Milk Of Magnesia) 2,400 mg PRN QHS PRN PO CONSTIPATION; Start 07/28/17 at 20:00; Stop 07/28/17 at 20:05; Status DC Temazepam (Restoril) 15 mg QHS PO Last administered on 08/10/17 19:57; Start at 21:45 Melatonin 3 mg QHS PO Last administered on 08/10/17at 19:56; Start 07/28/17 at 21 :00 Risperidone (RisperDAL) 4 mg QHS PO Last administered on 08/07/17at 19:41; Start 07/28/17 at 21:45; Stop 08/07/17 at 21:47; Status DC Insulin Detemir (Levemir) 70 units HS SQ Last administered on 08/10/17 19:59; Start 07/28/17 at 21:00 Hydrochlorothiazide (Microzide) 12.5 mg DAILY PO Last administered on 08:01; Start 07/29/17 at 09:00; Stop 08/04/17 at 16:34; Status DC Insulin Aspart (NovoLOG) TIDBFRMEAL SQ ; Start 07/29/17 at 11:30; Stop at 11:30; Status DC Non-Formulary Medication (Cefuroxime Axetil (Cefuroxime)) 250 mg BID PO ; Start 07/29/17 at 09:00; Stop 07/29/17 at 09:00; Status DC Losartan Potassium (Cozaar) 100 mg DAILY PO Last administered on 08/10/17 08:28 ; Start 07/29/17 at 09:00 Non-Formulary Medication (Lovastatin ) 40 mg QHS PO ; Start 07/29/17 at 21:00; Stop 07/29/17 at 21:00; Status DC Multivitamins/ Calcium (Thera-M Plus) 1 tab DAILY PO Last administered on 08:27; Start 07/29/17 at 09:00 Non-Formulary Medication (Sitagliptin Phosphate (Januvia)) 100 mg DAILY PO ; Start 07/29/17 at 09:00; Stop 07/29/17 at 09:00; Status DC Coenzyme Q10 (Coenzyme Q10) 100 mg DAILYWSUP PO Last administered on 08/10/17 17:33; Start 07/30/17 at 17:00 Atorvastatin Calcium (Lipitor) 10 mg QHS PO Last administered on 08/10/17 19:55 ; Start 07/29/17 at 21:00 Linagliptin (Tradjenta) 5 mg DAILY PO Last administered on 08/10/17 08:28; Start 07/29/17 at 09:00 Cefpodoxime Proxetil (Vantin) 100 mg BID PO Last administered on 08/02/17 20: 11; Start 07/29/17 at 09:00; Stop 08/02/17 at 21:01; Status DC Lactobacillus Rhamnosus (Culturelle) 1 cap BID PO Last administered on 19:55; Start 07/29/17 at 09:00 Insulin Aspart (NovoLOG) 20 units TIDBFRMEAL SQ Last administered on 08/10/17 17:34; Start 07/29/17 at 09:30 Insulin Detemir (Levemir) 30 units DAILY08 SQ Last administered on 08/10/17 08: 29; Start 07/30/17 at 08:00 Oxcarbazepine (Trileptal) 300 mg BID PO Last administered on 08/03/17 07:45; Start 07/29/17 at 21:00; Stop 08/03/17 at 18:45; Status DC Divalproex Sodium (Depakote Er) 500 mg QHS PO Last administered on 08/03/17 19 :49; Start 08/01/17 at 21:00; Stop 08/04/17 at 11:04; Status DC Ondansetron HCl (Zofran Odt) 4 mg PRN Q4HRS PRN PO NAUSEA/VOMITING Last administered on 08/03/17 17:27; Start 08/02/17 at 07:45 Divalproex Sodium (Depakote Er) 1,000 mg QHS PO Last administered on 08/10/17 19:56; Start 08/04/17 at 21:00 Risperidone (RisperDAL) 3.5 mg QHS PO Last administered on 08/08/17 19:36; Start 08/08/17 at 21:00; Stop 08/09/17 at 18:22; Status DC Risperidone (RisperDAL) 3 mg QHS PO Last administered on 08/10/17 19:55; Start 08/09/17 at 21:00 Active Scripts Active Reported Novolog Flexpen (Insulin Aspart) 100 Unit/1 Ml Insuln.pen 0 SQ TIDBFRMEAL Hydrochlorothiazide Capsule (Hydrochlorothiazide) 12.5 Mg Capsule 12.5 Mg PO DAILY Ubiquinol 100 Mg Capsule 100 Mg PO DAILYWSUP Temazepam 15 Mg Capsule 15 Mg PO QHS Januvia (Sitagliptin Phosphate) 100 Mg Tablet 100 Mg PO DAILY Risperidone 4 Mg Tablet 4 Mg PO QHS Multivitamins (Multivitamin) 1 Each Tablet 1 Tab PO DAILY Melatonin 3 Mg Tablet 3 Mg PO QHS Lovastatin 40 Mg Tablet 40 Mg PO QHS Losartan Potassium 100 Mg Tablet 100 Mg PO DAILY Levemir Flextouch (Insulin Detemir) 100 Unit/1 Ml Insuln.pen 70 Unit SQ HS Cefuroxime (Cefuroxime Axetil) 500 Mg Tablet 250 Mg PO BID 5 Days I have reviewed the current psychotropics carefully including drug interactions. Risk benefit ratio favors no change other than as noted in my dictated progress note. Diagnosis: Problems: (1) Behavior problem (2) Anxiety disorder (3) Confusion (4) Bipolar 1 disorder, manic, moderate (5) Schizoaffective disorder JAY DOE MD Aug 10, 2017 20:55
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
[2017-08-11 05:45] VITALS: BP 140/59
[2017-08-11] MEDS: INSULIN ASPART 300 UNITS/3 ML INSULN.PEN SQ SCH ×3 (08:41→17:16)
[2017-08-11] MEDS: MULTIVITAMIN with MINERAL TABLET. PO SCH (08:43)
[2017-08-11] MEDS: INSULIN DETEMIR 300 UNITS/3 ML INSULN.PEN. SQ SCH ×2 (08:43→20:27)
[2017-08-11] MEDS: LACTOBACILLUS RHAMNOSUS GG 1 CAPSULE. PO SCH ×2 (08:44→20:24)
[2017-08-11] MEDS: LOSARTAN 50 MG TABLET. PO SCH (08:44)
[2017-08-11] MEDS: LINAGLIPTIN 5 MG TABLET PO SCH (08:44)
[2017-08-11 16:24] VITALS: BP 164/73
[2017-08-11] MEDS: UBIDECARENONE 50 MG CAPSULE. PO SCH (17:15)
[2017-08-11] MEDS: MELATONIN 3 MG TABLET PO SCH (20:24)
[2017-08-11] MEDS: ATORVASTATIN CALCIUM 10 MG TABLET. PO SCH (20:24)
[2017-08-11] MEDS: DIVALPROEX ER 500 MG TAB.ER.24H PO SCH (20:24)
[2017-08-11] MEDS: risperiDONE 1 MG TABLET. PO SCH (20:25)
[2017-08-11] MEDS: TEMAZEPAM 15 MG CAPSULE PO SCH (20:28)
--- NOTE | 2017-08-11 20:55 | PDOC ---
Exam Note: Naseem Note: Please also refer to the separate dictated note~for this date of service dictated separately.~Patient seen individually. Discussed the patient with Nursing staff reviewed the chart.~Reviewed interim history and current functioning. Reviewed vital signs,~Labs/ Radiology~and current medications noted below. Continue current treatment with the changes noted in the dictated addendum note Assessment: Vital Signs: Vital Signs Date Time Temp Pulse Resp B/P (MAP) Pulse Ox O2 Delivery O2 Flow Rate FiO2 08/11/17 16:24 98.1 57 20 164/73 (103) 98 08/10/17 16:05 Room Air I&O Intake and Output 08/11/17 07:00 Intake Total 1680 ml Balance 1680 ml Intake Oral 1680 ml # Voids 1 Labs: Laboratory Tests Test 08/11/17 07:12 08/11/17 11:15 08/11/17 16:47 08/11/17 18:56 Glucose (Fingerstick) 140 mg/dL (70-99) H 174 mg/dL (70-99) H 217 mg/dL (70-99) H 288 mg/dL (70-99) H Current Medications: Meds: Current Medications Acetaminophen (Tylenol) 650 mg PRN Q6HRS PRN PO PAIN / TEMP Last administered on 08/10/17at 02:53; Start 07/28/17 at 20:00 Al Hydroxide/Mg Hydroxide (Mylanta Plus Xs) 15 ml PRN AFTMEALHC PRN PO DYSPEPSIA; Start 07/28/17 at 20:00; Stop 07/28/17 at 20:05; Status DC Magnesium Hydroxide (Milk Of Magnesia) 2,400 mg PRN QHS PRN PO CONSTIPATION; Start 07/28/17 at 20:00; Stop 07/28/17 at 20:05; Status DC Temazepam (Restoril) 15 mg QHS PO Last administered on 08/11/17at 20:28; Start at 21:45 Melatonin 3 mg QHS PO Last administered on 08/11/17at 20:24; Start 07/28/17 at 21 :00 Risperidone (RisperDAL) 4 mg QHS PO Last administered on 08/07/17at 19:41; Start 07/28/17 at 21:45; Stop 08/07/17 at 21:47; Status DC Insulin Detemir (Levemir) 70 units HS SQ Last administered on 08/11/17 20:27; Start 07/28/17 at 21:00 Hydrochlorothiazide (Microzide) 12.5 mg DAILY PO Last administered on at 08:01; Start 07/29/17 at 09:00; Stop 08/04/17 at 16:34; Status DC Insulin Aspart (NovoLOG) TIDBFRMEAL SQ ; Start 07/29/17 at 11:30; Stop at 11:30; Status DC Non-Formulary Medication (Cefuroxime Axetil (Cefuroxime)) 250 mg BID PO ; Start 07/29/17 at 09:00; Stop 07/29/17 at 09:00; Status DC Losartan Potassium (Cozaar) 100 mg DAILY PO Last administered on 08/11/17 08:44 ; Start 07/29/17 at 09:00 Non-Formulary Medication (Lovastatin ) 40 mg QHS PO ; Start 07/29/17 at 21:00; Stop 07/29/17 at 21:00; Status DC Multivitamins/ Calcium (Thera-M Plus) 1 tab DAILY PO Last administered on 08:43; Start 07/29/17 at 09:00 Non-Formulary Medication (Sitagliptin Phosphate (Januvia)) 100 mg DAILY PO ; Start 07/29/17 at 09:00; Stop 07/29/17 at 09:00; Status DC Coenzyme Q10 (Coenzyme Q10) 100 mg DAILYWSUP PO Last administered on 08/11/17at 17:15; Start 07/30/17 at 17:00 Atorvastatin Calcium (Lipitor) 10 mg QHS PO Last administered on 08/11/17 20:24 ; Start 07/29/17 at 21:00 Linagliptin (Tradjenta) 5 mg DAILY PO Last administered on 08/11/17 08:44; Start 07/29/17 at 09:00 Cefpodoxime Proxetil (Vantin) 100 mg BID PO Last administered on 08/02/17at 20: 11; Start 07/29/17 at 09:00; Stop 08/02/17 at 21:01; Status DC Lactobacillus Rhamnosus (Culturelle) 1 cap BID PO Last administered on 20:24; Start 07/29/17 at 09:00 Insulin Aspart (NovoLOG) 20 units TIDBFRMEAL SQ Last administered on 08/11/17 17:16; Start 07/29/17 at 09:30 Insulin Detemir (Levemir) 30 units DAILY08 SQ Last administered on 08/11/17 08: 43; Start 07/30/17 at 08:00 Oxcarbazepine (Trileptal) 300 mg BID PO Last administered on 08/03/17 07:45; Start 07/29/17 at 21:00; Stop 08/03/17 at 18:45; Status DC Divalproex Sodium (Depakote Er) 500 mg QHS PO Last administered on 08/03/17 19 :49; Start 08/01/17 at 21:00; Stop 08/04/17 at 11:04; Status DC Ondansetron HCl (Zofran Odt) 4 mg PRN Q4HRS PRN PO NAUSEA/VOMITING Last administered on 08/03/17 17:27; Start 08/02/17 at 07:45 Divalproex Sodium (Depakote Er) 1,000 mg QHS PO Last administered on 08/11/17 20:24; Start 08/04/17 at 21:00 Risperidone (RisperDAL) 3.5 mg QHS PO Last administered on 08/08/17 19:36; Start 08/08/17 at 21:00; Stop 08/09/17 at 18:22; Status DC Risperidone (RisperDAL) 3 mg QHS PO Last administered on 08/11/17 20:25; Start 08/09/17 at 21:00 Active Scripts Active Reported Novolog Flexpen (Insulin Aspart) 100 Unit/1 Ml Insuln.pen 0 SQ TIDBFRMEAL Hydrochlorothiazide Capsule (Hydrochlorothiazide) 12.5 Mg Capsule 12.5 Mg PO DAILY Ubiquinol 100 Mg Capsule 100 Mg PO DAILYWSUP Temazepam 15 Mg Capsule 15 Mg PO QHS Januvia (Sitagliptin Phosphate) 100 Mg Tablet 100 Mg PO DAILY Risperidone 4 Mg Tablet 4 Mg PO QHS Multivitamins (Multivitamin) 1 Each Tablet 1 Tab PO DAILY Melatonin 3 Mg Tablet 3 Mg PO QHS Lovastatin 40 Mg Tablet 40 Mg PO QHS Losartan Potassium 100 Mg Tablet 100 Mg PO DAILY Levemir Flextouch (Insulin Detemir) 100 Unit/1 Ml Insuln.pen 70 Unit SQ HS Cefuroxime (Cefuroxime Axetil) 500 Mg Tablet 250 Mg PO BID 5 Days I have reviewed the current psychotropics carefully including drug interactions. Risk benefit ratio favors no change other than as noted in my dictated progress note. Diagnosis: Problems: (1) Behavior problem (2) Anxiety disorder (3) Confusion (4) Bipolar 1 disorder, manic, moderate (5) Schizoaffective disorder JAY DOE MD Aug 11, 2017 20:55
[2017-08-12 06:21] VITALS: BP 120/62
[2017-08-12] MEDS: INSULIN ASPART 300 UNITS/3 ML INSULN.PEN SQ SCH ×3 (07:30→17:21)
[2017-08-12] MEDS: MULTIVITAMIN with MINERAL TABLET. PO SCH (08:53)
[2017-08-12] MEDS: LINAGLIPTIN 5 MG TABLET PO SCH (08:53)
[2017-08-12] MEDS: LACTOBACILLUS RHAMNOSUS GG 1 CAPSULE. PO SCH ×2 (08:53→20:21)
[2017-08-12] MEDS: LOSARTAN 50 MG TABLET. PO SCH (08:54)
[2017-08-12] MEDS: INSULIN DETEMIR 300 UNITS/3 ML INSULN.PEN. SQ SCH ×2 (08:56→20:23)
[2017-08-12 15:53] VITALS: BP 131/58
[2017-08-12] MEDS: UBIDECARENONE 50 MG CAPSULE. PO SCH (17:26)
[2017-08-12] MEDS: MELATONIN 3 MG TABLET PO SCH (20:21)
[2017-08-12] MEDS: risperiDONE 1 MG TABLET. PO SCH (20:21)
[2017-08-12] MEDS: ATORVASTATIN CALCIUM 10 MG TABLET. PO SCH (20:21)
[2017-08-12] MEDS: DIVALPROEX ER 500 MG TAB.ER.24H PO SCH (20:21)
[2017-08-12] MEDS: TEMAZEPAM 15 MG CAPSULE PO SCH (20:24)
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
--- NOTE | 2017-08-12 23:16 | PDOC ---
Exam Note: Naseem Note: Please also refer to the separate dictated note~for this date of service dictated separately.~Patient seen individually. Discussed the patient with Nursing staff reviewed the chart.~Reviewed interim history and current functioning. Reviewed vital signs,~Labs/ Radiology~and current medications noted below. Continue current treatment with the changes noted in the dictated addendum note Assessment: Vital Signs: Vital Signs Date Time Temp Pulse Resp B/P (MAP) Pulse Ox O2 Delivery O2 Flow Rate FiO2 08/12/17 15:53 98.0 77 18 131/58 (82) 95 08/10/17 16:05 Room Air I&O Intake and Output 08/12/17 07:00 Intake Total 1560 ml Balance 1560 ml Intake Oral 1560 ml # Bowel Movements 1 Labs: Laboratory Tests Test 08/12/17 07:23 08/12/17 11:14 08/12/17 16:23 08/12/17 19:08 Glucose (Fingerstick) 72 mg/dL (70-99) 249 mg/dL (70-99) H 180 mg/dL (70-99) H 305 mg/dL (70-99) H Current Medications: Meds: Current Medications Acetaminophen (Tylenol) 650 mg PRN Q6HRS PRN PO PAIN / TEMP Last administered on 08/10/17at 02:53; Start 07/28/17 at 20:00 Al Hydroxide/Mg Hydroxide (Mylanta Plus Xs) 15 ml PRN AFTMEALHC PRN PO DYSPEPSIA; Start 07/28/17 at 20:00; Stop 07/28/17 at 20:05; Status DC Magnesium Hydroxide (Milk Of Magnesia) 2,400 mg PRN QHS PRN PO CONSTIPATION; Start 07/28/17 at 20:00; Stop 07/28/17 at 20:05; Status DC Temazepam (Restoril) 15 mg QHS PO Last administered on 08/12/17at 20:24; Start at 21:45 Melatonin 3 mg QHS PO Last administered on 08/12/17at 20:21; Start 07/28/17 at 21 :00 Risperidone (RisperDAL) 4 mg QHS PO Last administered on 08/07/17at 19:41; Start 07/28/17 at 21:45; Stop 08/07/17 at 21:47; Status DC Insulin Detemir (Levemir) 70 units HS SQ Last administered on 08/12/17at 20:23; Start 07/28/17 at 21:00 Hydrochlorothiazide (Microzide) 12.5 mg DAILY PO Last administered on at 08:01; Start 07/29/17 at 09:00; Stop 08/04/17 at 16:34; Status DC Insulin Aspart (NovoLOG) TIDBFRMEAL SQ ; Start 07/29/17 at 11:30; Stop at 11:30; Status DC Non-Formulary Medication (Cefuroxime Axetil (Cefuroxime)) 250 mg BID PO ; Start 07/29/17 at 09:00; Stop 07/29/17 at 09:00; Status DC Losartan Potassium (Cozaar) 100 mg DAILY PO Last administered on 08/12/17at 08:54 ; Start 07/29/17 at 09:00 Non-Formulary Medication (Lovastatin ) 40 mg QHS PO ; Start 07/29/17 at 21:00; Stop 07/29/17 at 21:00; Status DC Multivitamins/ Calcium (Thera-M Plus) 1 tab DAILY PO Last administered on at 08:53; Start 07/29/17 at 09:00 Non-Formulary Medication (Sitagliptin Phosphate (Januvia)) 100 mg DAILY PO ; Start 07/29/17 at 09:00; Stop 07/29/17 at 09:00; Status DC Coenzyme Q10 (Coenzyme Q10) 100 mg DAILYWSUP PO Last administered on 08/12/17at 17:26; Start 07/30/17 at 17:00 Atorvastatin Calcium (Lipitor) 10 mg QHS PO Last administered on 08/12/17at 20:21 ; Start 07/29/17 at 21:00 Linagliptin (Tradjenta) 5 mg DAILY PO Last administered on 08/12/17at 08:53; Start 07/29/17 at 09:00 Cefpodoxime Proxetil (Vantin) 100 mg BID PO Last administered on 08/02/17at 20: 11; Start 07/29/17 at 09:00; Stop 08/02/17 at 21:01; Status DC Lactobacillus Rhamnosus (Culturelle) 1 cap BID PO Last administered on 20:21; Start 07/29/17 at 09:00 Insulin Aspart (NovoLOG) 20 units TIDBFRMEAL SQ Last administered on 08/12/17 17:21; Start 07/29/17 at 09:30 Insulin Detemir (Levemir) 30 units DAILY08 SQ Last administered on 08/12/17 08: 56; Start 07/30/17 at 08:00 Oxcarbazepine (Trileptal) 300 mg BID PO Last administered on 08/03/17 07:45; Start 07/29/17 at 21:00; Stop 08/03/17 at 18:45; Status DC Divalproex Sodium (Depakote Er) 500 mg QHS PO Last administered on 08/03/17 19 :49; Start 08/01/17 at 21:00; Stop 08/04/17 at 11:04; Status DC Ondansetron HCl (Zofran Odt) 4 mg PRN Q4HRS PRN PO NAUSEA/VOMITING Last administered on 08/03/17 17:27; Start 08/02/17 at 07:45 Divalproex Sodium (Depakote Er) 1,000 mg QHS PO Last administered on 08/12/17 20:21; Start 08/04/17 at 21:00 Risperidone (RisperDAL) 3.5 mg QHS PO Last administered on 08/08/17 19:36; Start 08/08/17 at 21:00; Stop 08/09/17 at 18:22; Status DC Risperidone (RisperDAL) 3 mg QHS PO Last administered on 08/12/17 20:21; Start 08/09/17 at 21:00 Active Scripts Active Reported Novolog Flexpen (Insulin Aspart) 100 Unit/1 Ml Insuln.pen 0 SQ TIDBFRMEAL Hydrochlorothiazide Capsule (Hydrochlorothiazide) 12.5 Mg Capsule 12.5 Mg PO DAILY Ubiquinol 100 Mg Capsule 100 Mg PO DAILYWSUP Temazepam 15 Mg Capsule 15 Mg PO QHS Januvia (Sitagliptin Phosphate) 100 Mg Tablet 100 Mg PO DAILY Risperidone 4 Mg Tablet 4 Mg PO QHS Multivitamins (Multivitamin) 1 Each Tablet 1 Tab PO DAILY Melatonin 3 Mg Tablet 3 Mg PO QHS Lovastatin 40 Mg Tablet 40 Mg PO QHS Losartan Potassium 100 Mg Tablet 100 Mg PO DAILY Levemir Flextouch (Insulin Detemir) 100 Unit/1 Ml Insuln.pen 70 Unit SQ HS Cefuroxime (Cefuroxime Axetil) 500 Mg Tablet 250 Mg PO BID 5 Days I have reviewed the current psychotropics carefully including drug interactions. Risk benefit ratio favors no change other than as noted in my dictated progress note. Diagnosis: Problems: (1) Behavior problem (2) Anxiety disorder (3) Confusion (4) Bipolar 1 disorder, manic, moderate (5) Schizoaffective disorder JAY DOE MD Aug 12, 2017 23:16
[2017-08-12] MEDS ORDERED: LACT1CAP21 PO (23:58)
[2017-08-12] MEDS ORDERED: LINA5TAB4 PO (23:58)
[2017-08-12] MEDS ORDERED: DIVA500T17 PO (23:58)
[2017-08-12] MEDS ORDERED: ACET325T9 PO (23:58)
[2017-08-12] MEDS ORDERED: INSU100I27 SQ (23:58)
[2017-08-12] MEDS ORDERED: ONDA4TAB10 PO (23:58)
--- NOTE | 2017-08-13 00:20 | PN ---
DATE: 08/11/2017 This is a late entry for 08/11/2017 and covers elements not covered in my initial note of 08/11/2017. SUBJECTIVE: The patient was staffed at a treatment team meeting with the entire team morning of 08/11/2017, seen individually evening of 08/11/2017. The patient is sleeping about 6 hours, more appropriate, less labile in her mood despite reduction of Risperdal. I do feel the Depakote at therapeutic level seems to be assisting. REVIEW OF SYSTEMS: No CV, , pulmonary, eye, ENT system symptoms on review. MENTAL STATUS EXAM: Reasonably oriented. Speech is coherent, abstraction fair, computation impaired, language function intact. Mood and affect appears improved. LABORATORY DATA: Reviewed. IMPRESSION: Bipolar 1 disorder, mixed with psychotic features, in partial remission. Rest unchanged. PLAN: Continue his current psychotropics. Risperdal has been reduced to 3 mg at bedtime, may reduce it further before discharge or it may have to be done as an outpatient. MAN Kaur DOE MD DR: KRISTY/german JOB#: [id number] / [id number]
[2017-08-13 05:50] VITALS: BP 131/68
[2017-08-13] MEDS: INSULIN ASPART 300 UNITS/3 ML INSULN.PEN SQ SCH (07:51)
[2017-08-13 07:52] VITALS: BP 131/68
[2017-08-13] MEDS: LOSARTAN 50 MG TABLET. PO SCH (07:52)
[2017-08-13] MEDS: MULTIVITAMIN with MINERAL TABLET. PO SCH (07:52)
[2017-08-13] MEDS: LACTOBACILLUS RHAMNOSUS GG 1 CAPSULE. PO SCH (07:52)
[2017-08-13] MEDS: LINAGLIPTIN 5 MG TABLET PO SCH (07:52)
[2017-08-13] MEDS: INSULIN DETEMIR 300 UNITS/3 ML INSULN.PEN. SQ SCH (07:57)
--- NOTE | 2017-08-14 15:54 | DS ---
DATE OF DISCHARGE: 08/12/2017 DISCHARGE SUMMARY/PSYCHIATRIC PROGRESS NOTE This is a late entry 08/12/2017, covers elements not covered in my initial note 08/12/2017. REASON FOR ADMISSION: Please refer to the admission history for details. Briefly, the patient is a 62-year-old female referred to us from [facility] where she was admitted from home after she left her apartment, ended up driving in [place], ran out of gas. Police found her to go to [facility]. She appeared manic, increasingly confused, psychotic. She had a psychiatric consult there at [facility] with Dr. Huggins and referred for inpatient psychiatric stabilization. SIGNIFICANT FINDINGS AND CLINICAL COURSE: Following admission, the patient was seen daily individually by myself, followed medically per Dr. Horta/Dr Walsh. The patient remains somewhat manic, but minimized this and she was paranoid as well. Her past history was quite eliminating in that during periods of betsy in the past she become extremely hypersexual towards her highway commissioner amongst other things. Complicating factors are that she lives alone in an apartment by herself and is extremely noncompliant with the medications even though they are bubble packed. She has been in outpatient treatment at the [facility]. Adjustments were made in her psychotropics. She was on a total of 4 mg of Risperdal a day and no mood stabilizer. Risk/benefit ratio of the higher dosage of Risperdal was considered carefully. It was felt that having her on a mood stabilizer would help us to reduce the dosage of Risperdal, reduce the risk associated with the high dosage and she was started on Depakote ER increased to 1000 mg p.o. at bedtime with a therapeutic level of 62. She was also on Restoril 15 mg at bedtime, melatonin 3 mg at bedtime. Risperdal was gradually reduced to 3 mg a day and it is suggested that this could be further reduced gradually as an outpatient down to 2 mg a day if not less. I do feel the mood stabilizer Depakote should help stabilize her much better than being on Risperdal by itself. REVIEW OF SYSTEMS: Prior to discharge on 08/13/2017 no CV, , pulmonary, eye, ENT system symptoms on review. MENTAL STATUS EXAM: Reasonably oriented. Speech coherent, abstraction fair, computation somewhat impaired, language function intact, attention span short. Mood and affect was improved. CONDITION AT DISCHARGE: Improved. FINAL DIAGNOSES: Bipolar 1 disorder, mixed versus manic, in partial remission; anxiety disorder, unspecified. Rest unchanged from admission. DISCHARGE MEDICATIONS: Please refer to the . DISCHARGE INSTRUCTIONS: Outpatient psychiatric followup at the [facility], medical followup with her primary care physician. Time for discharge day management greater than 30 minutes. JAY DOE MD DR: KRISTY/german JOB#: [id number] / [id number]
--- NOTE | 2017-08-14 20:10 | PN ---
DATE: 08/12/2017 This is a late entry for 08/12/2017 and covers the elements not covered in my initial note of 08/12/2017. SUBJECTIVE: I met with the patient in the evening of 08/12/2017. Overall, the patient is more cooperative on the unit, stated mood is better, calm and compliant with medications. Discussed at length about medication compliance post-discharge since this has been a significant confounding factor for her relapses in the past. REVIEW OF SYSTEMS: No CV, , pulmonary, eye, ENT system symptoms on review. MENTAL STATUS EXAM: The patient is reasonably oriented. Speech coherent, abstraction fair, computation reasonable, language function intact. Mood and affect was improved. No suicidal or homicidal ideation. LABORATORY DATA: Reviewed. IMPRESSION: Bipolar 1 disorder, in partial remission. Rest unchanged. PLAN: Continue current psychotropics including Depakote level is therapeutic at 62. Discharge on 08/13/2017. MAN Kaur DOE MD DR: KRISTY/german JOB#: [id number] / [id number]
== END 2017-08-13 10:15 | disposition home or self-care (01) | DRG 885 ==
LOC: GEROPSY 19:32
PROVIDERS: ADMIT Psychiatry & Neurology Psychiatry; ATTEND Psychiatry & Neurology Psychiatry
DX: F31.64 Bipolar disorder, current episode mixed, severe, with psychotic features (principal); F31.2 Bipolar disorder, current episode manic severe with psychotic features; E66.9 Obesity, unspecified; E11.9 Type 2 diabetes mellitus without complications; E78.5 Hyperlipidemia, unspecified; F41.9 Anxiety disorder, unspecified; F31.77 Bipolar disorder, in partial remission, most recent episode mixed; I10 Essential (primary) hypertension; Z79.899 Other long term (current) drug therapy; Z87.440 Personal history of urinary (tract) infections; Z68.38 Body mass index [BMI] 38.0-38.9, adult; Z91.14 Patient's other noncompliance with medication regimen; Z88.2 Allergy status to sulfonamides; Z88.8 Allergy status to other drugs, medicaments and biological substances; Z91.041 Radiographic dye allergy status; Z91.040 Latex allergy status
CPT/HCPCS: 36415; 80053; 80061; 80164; 81001; 82306; 82607; 82947; 83036; 83540; 83550; 83735; 84436; 84443; 84480; 85025; 86593; 87086; J1815; Q0162

== ENCOUNTER → 2020-02-26 | Outpatient (CLI) | payer MEDICARE, OTHER ==
[~2020-02-26] MED LIST: ACET325T9 PO; CEFU500T46 PO; DIVA500T17 PO; HYDR12.572 PO; INSU100I17 SQ; INSU100I27 SQ; LACT1CAP21 PO; LINA5TAB4 PO; LOSA100T14 PO; LOVA40TA2 PO; MELA3TAB4 PO; MULT-445 PO; ONDA4TAB10 PO; RISP4TAB2 PO; SITA100T PO; TEMA15CA PO; UBIQ100C3 PO
--- NOTE | 2020-02-28 17:01 | RAD ---
DATE: 02/26/2020 EXAM: DIGITAL SCREEN BILAT W/CAD HISTORY: Screening COMPARISON: 01/26/2019, 11/26/2016 This study was interpreted with the benefit of Computerized Aided Detection (CAD). Breast Density: SCATTERED The breast parenchyma shows scattered fibroglandular densities. Breast parenchyma level B. FINDINGS: There is limitations of the exam due to patient pain and difficulty with positioning. No mass, suspicious calcification, or architectural distortion in either breast. There are benign calcifications bilaterally. IMPRESSION: No evidence of malignancy. BI-RADS CATEGORY: 2 BENIGN FINDING(S) RECOMMENDED FOLLOW-UP: 12M 12 MONTH FOLLOW-UP PQRS compliance statement: Patient information was entered into a reminder system with a target due date for the next mammogram. Mammography is a sensitive method for finding small breast cancers, but it does not detect them all and is not a substitute for careful clinical examination. A negative mammogram does not negate a clinically suspicious finding and should not result in delay in biopsying a clinically suspicious abnormality. "Our facility is accredited by the [employer] Mammography Program."
== END ==
LOC: MAMMO 15:01
PROVIDERS: ATTEND Family Medicine
DX: Z12.31 Encounter for screening mammogram for malignant neoplasm of breast (principal)
CPT/HCPCS: 77067

== ENCOUNTER → 2020-08-04 | Outpatient (CLI) | payer MEDICARE, OTHER ==
[~2020-08-04] MED LIST changes: -RISP4TAB2 PO; +RISP4TAB65 PO
[2020-08-04 09:33] LABS: ALBUMIN 3.3 g/dL (3.4-5.0); ALBUMIN/GLOBULIN RATIO 0.7 (1.0-1.7); ALK PHOS 88 U/L (46-116); ALT (SGPT) 32 U/L (14-59); ANION GAP 5 (6-14); AST (SGOT) 17 U/L (15-37); BLOOD UREA NITROGEN 20 mg/dL (7-20); BUN/CREATININE RATIO 22 (6-20); CALCIUM 9.2 mg/dL (8.5-10.1); CARBON DIOXIDE 34 mmol/L (21-32); CHLORIDE 102 mmol/L (98-107); CREATININE 0.9 mg/dL (0.6-1.0); GLUCOSE 204 mg/dL (70-99); POTASSIUM 3.9 mmol/L (3.5-5.1); SODIUM 141 mmol/L (136-145); TOTAL BILIRUBIN 0.5 mg/dL (0.2-1.0); TOTAL PROTEIN 7.8 g/dL (6.4-8.2)
[2020-08-04 09:35] LABS: BASO % 1 % (0-3); EOS # 0.1 x10^3/uL (0.0-0.7); EOS % 2 % (0-3); HEMATOCRIT 44.7 % (36.0-47.0); LYMPH # 2.3 x10^3/uL (1.0-4.8); LYMPH % 36 % (24-48); MEAN CORPUSCULAR HEMOGLOBIN 30 pg (25-35); MEAN CORPUSCULAR HGB CONC 34 g/dL (31-37); MEAN CORPUSCULAR VOLUME 91 fL (79-100); MONO # 0.5 x10^3/uL (0.0-1.1); MONO % 9 % (0-9); NEUT # 3.4 x10^3uL (1.8-7.7); NEUT % 53 % (31-73); PLATELET COUNT 196 x10^3/uL (140-400); RED BLOOD COUNT 4.94 x10^6/uL (3.50-5.40); RED CELL DISTRIBUTION WIDTH 13.8 % (11.5-14.5); WHITE BLOOD COUNT 6.3 x10^3/uL (4.0-11.0)
[2020-08-04 09:39] LABS: VAL ACID 79 mcg/mL (50-100)
[2020-08-04 13:49] LABS: FREE T4 1.34 ng/dL (0.76-1.46); THYROID STIM HORMONE (TSH) 1.79 uIU/mL (0.358-3.740)
[2020-08-05 01:06] LABS: HEMOGLOBIN A1C 8.8 % (4.8-5.6)
== END ==
LOC: LAB 08:28
PROVIDERS: ATTEND Physician Assistant
DX: F31.2 Bipolar disorder, current episode manic severe with psychotic features (principal); Z79.899 Other long term (current) drug therapy
CPT/HCPCS: 36415; 80053; 80061; 80164; 83036; 84439; 84443; 84480; 85025